=== PATIENT | female | born 1990 | race Caucasian/White ===

== ENCOUNTER 2019-04-06 09:42 | Outpatient (CLI) | payer OTHER, SELFPAY | END 2019-04-06 09:43 | disposition home or self-care (01) | LOC: ANHLAB 09:43 | PROVIDERS: Visit Provider Obstetrics & Gynecology | DX: N92.5 Other specified irregular menstruation (principal) | CPT/HCPCS: 36415; 84702 ==

== ENCOUNTER 2019-04-10 06:44 | Outpatient (CLI) | payer OTHER, SELFPAY ==
[2019-04-10 08:27] LABS: Hematocrit 39.6 % (37.0-47.0); Hemoglobin 13.2 g/dL (12.0-15.0); Mean Corpuscular HGB Conc 33.3 g/dl (32-36); Mean Corpuscular Hemoglobin 27.4 pg (26-34); Mean Corpuscular Volume 82.2 fl (80-100); Mean Platelet Volume 10.4 fl (7.4-10.4); Platelet Count Result 284 k/mm3 (150-375); Red Blood Count 4.82 M/mm3 (4.2-5.4); White Blood Count 7.9 K/mm3 (4.5-10.0)
[2019-04-10 08:46] LABS: Glucose 1 Hour PP 50gm Dose 75 mg/dL
[2019-04-10 09:14] LABS: Rubella IgG Antibody 26.3 IU/ML
[2019-04-10 09:15] LABS: Hepatitis B Surface Antigen Negative (Negative)
[2019-04-10 09:24] LABS: HIV 1/2 Ab P24 Ag Result Negative (Negative)
[2019-04-13 07:35] LABS: Rapid Plasma Reagin Non-Reactive (NonReactive)
[2019-04-15 14:54] LABS: CMV IgG Antibody >10.00 U/mL (<0.60)
== END 2019-04-10 06:45 | disposition home or self-care (01) ==
PROVIDERS: Visit Provider Obstetrics & Gynecology
DX: N92.5 Other specified irregular menstruation (principal); E66.9 Obesity, unspecified
CPT/HCPCS: 36415; 82947; 84702; 85027; 86592; 86644; 86703; 86747; 86762; 86787; 86850; 86900; 86901; 87086; 87340; G0432

== ENCOUNTER 2019-04-16 10:43 | Outpatient (CLI) | payer OTHER, SELFPAY ==
--- NOTE | ~2019-04-16 | US_ITS ---
EXAMINATION: US OB <= 14 weeks fetus DATE: 04/16/2019 11:12 INDICATION: Routine care. Recent miscarriage. Uncertain dates. TECHNIQUE: Real-time transabdominal pelvic ultrasound was performed. COMPARISON: Ultrasound 02/03/2019 FINDINGS: The uterus measures 12.5 x 7.8 x 6.4 cm. There is an intrauterine gestational sac. The crown r ump length measures 2.3 cm, which correlates with an estimated gestational age of 9 weeks and 0 day(s ) (+/-) 6 day(s). heart motion is identified measuring 167 beats per minute (bpm) by M-mode Dop pler. The right ovary measures 2.5 x 3.6 x 1.4 cm. The left ovary measures 2.4 x 1.8 x 1.8 cm. There is no free fluid in the pelvis. IMPRESSION: 1. Single living intrauterine gestation with estimated date of delivery of 11/19/2019. Reviewed, dictated and finalized at location A. IT BALANCE SPECIALIST IMPRESSION: 1. Single living intrauterine gestation with estimated date of delivery of 11/02.
== END 2019-04-16 10:44 | disposition home or self-care (01) ==
LOC: ANHIMG 10:49
PROVIDERS: Visit Provider Obstetrics & Gynecology
DX: Z34.91 Encounter for supervision of normal pregnancy, unspecified, first trimester (principal)
CPT/HCPCS: 76801

== ENCOUNTER 2019-07-08 10:24 | Outpatient (CLI) | payer OTHER, SELFPAY ==
--- NOTE | ~2019-07-08 | US_ITS ---
EXAMINATION: US OB /maternal detail EXAM DATE: 07/08/2019 11:30 INDICATION: For anatomy. Second trimester. TECHNIQUE: Pelvic obstetrical transabdominal sonogram was performed by a technologist. There are mu ltiple grayscale and Doppler images available for interpretation. Comparison is made to prior examina tion from 04/16/2019. FINDINGS: There is a single fetus identified in transverse presentation with a heart rate of 150 beat s per minute. The placenta is located in the posterior fundal position. There is no sonographic evid ence of retroplacental hemorrhage identified. Placental margin to internal cervical os distance is 7 cm. BIOMETRIC DATA: Biparietal diameter (BPD): 5.0cm ----------------> 21 weeks 0 days. Head circumference (HC): 19.4 cm ----------------> 21 weeks 5 days. Abdominal circumference (AC): 16.4 cm ----------> 21 weeks 3 days. Femur length (FL): 3.5 cm --------------------------> 21 weeks 0 days. These measurements are concordant. HC/AC ratio is 1.18 (The 5th -- 95th percentile range is 1.08-1.24. Estimated weight is 410 g +/- 62 g. This is the 67th percentile when the currently reported cl inical gestation age 20 weeks 6 days, clinical estimated date of delivery (HODA-OPE) 11/19/2019 is used . estimated gestational age based on measurements from this exam is 21 weeks 2 days, with an es timated date of delivery (HODA-AUA) 11/16/2019. ANATOMIC SURVEY: The following anatomy is identified and is sonographically normal in appearance: Cerebral ventricles Cerebellum Cisterna magna Nuchal fold CTL-spine Four-chamber heart Diaphragm Stomach Kidneys Bladder Three-vessel cord Cord insertion IMPRESSION: 1. Single fetus in vertex presentation with heart rate 150 beats per minute. 2. Estimated weight of 410 grams, 67th percentile using the currently reported clinical gestat ion age of 20 weeks 6 days, HODA(OPE) 11/19/2019. 3. Normal anatomic survey Reviewed, dictated and finalized at location A. IMPRESSION: 1. Single fetus in vertex presentation with heart rate 150 beats per minute. 2. Estimated weight of 410 grams, 67th percentile using the currently re ported clinical gestation age of 20 weeks 6 days, HODA(OPE) 11/19/2019. 3. Normal anatomic survey
== END 2019-07-08 10:25 | disposition home or self-care (01) ==
PROVIDERS: Visit Provider Obstetrics & Gynecology
DX: Z34.93 Encounter for supervision of normal pregnancy, unspecified, third trimester (principal); Z3A.20 20 weeks gestation of pregnancy
CPT/HCPCS: 76805

== ENCOUNTER 2019-08-29 07:18 | Outpatient (CLI) | payer OTHER, SELFPAY ==
[2019-08-29 08:33] LABS: Hemoglobin 12.1 g/dL (12.0-15.0)
[2019-08-29 08:45] LABS: Glucose 1 Hour PP 50gm Dose 162 mg/dL
[2019-08-29 09:26] LABS: HIV 1/2 Ab P24 Ag Result Negative (Negative)
== END 2019-08-29 07:19 | disposition home or self-care (01) ==
PROVIDERS: Visit Provider Obstetrics & Gynecology
DX: Z34.91 Encounter for supervision of normal pregnancy, unspecified, first trimester (principal)
CPT/HCPCS: 36415; 82947; 85014; 85018; 86703; G0432

== ENCOUNTER 2019-09-15 07:51 | Outpatient (CLI) | payer OTHER, SELFPAY ==
[2019-09-15 08:25] LABS: Glucose Fasting Gestational 91 mg/dL (>/=95)
[2019-09-15 09:42] LABS: Glucose 1 Hour Gest 171 mg/dL (>/=180)
[2019-09-15 11:27] LABS: Glucose 2 Hour Gest 155 mg/dL (>/= 155)
[2019-09-15 11:56] LABS: Glucose 3 Hour Gest 111 mg/dL (>/=140)
== END 2019-09-15 07:52 | disposition home or self-care (01) ==
LOC: ANHLAB 07:54
PROVIDERS: Visit Provider Obstetrics & Gynecology
DX: R73.09 Other abnormal glucose (principal)
CPT/HCPCS: 36415; 82951; 82952

== ENCOUNTER 2019-11-11 15:50 | Outpatient (CLI) | payer OTHER, SELFPAY ==
[2019-11-11 16:20] LABS: Hematocrit 36.2 % (37.0-47.0); Hemoglobin 12.3 g/dL (12.0-15.0); Mean Corpuscular Hemoglobin 27.9 pg (26-34); Mean Corpuscular Volume 82.1 fl (80-100); Mean Platelet Volume 11.9 fl (7.4-10.4); Platelet Count Result 193 k/mm3 (150-375); Red Blood Count 4.41 M/mm3 (4.2-5.4); Red Cell Distribution Width 13.5 % (11.5-14.5); White Blood Count 11.8 K/mm3 (4.5-10.0)
[2019-11-12 09:51] LABS: Rapid Plasma Reagin Non-Reactive (NonReactive)
== END 2019-11-11 15:51 | disposition home or self-care (01) ==
PROVIDERS: Visit Provider Obstetrics & Gynecology
DX: Z34.93 Encounter for supervision of normal pregnancy, unspecified, third trimester (principal); Z3A.00 Weeks of gestation of pregnancy not specified
CPT/HCPCS: 36415; 85027; 86592; 86850; 86900; 86901

== ENCOUNTER 2019-11-12 05:27 | Inpatient (IN) | payer OTHER, SELFPAY ==
[2019-11-12] VITALS (58 sets, daily range): BP systolic 94–167; BP diastolic 51–143; PULSE 57–125; RESP 12–18; TEMP 36.3–37.1; O2SAT 80–100; BMI 38.1
[2019-11-12] MEDS: LACTATED RINGERS 1,000 ML 125 ML IV CONT ×2 (06:00→06:59)
--- NOTE | 2019-11-12 06:05 | LDADM ---
This patient, Heavenly Moreira, was admitted to Labor/Delivery/Recovery 120 on 11/12/19 at 05:27. Plans for , pain management and were discussed with patient. Patient/family oriented to hospital policies and general routines including ID bracelet, bed and alarms, visiting hours, pain management, procedures, bathroom and other care routines, personal items, smoking policy, room service/diet and guest tray routines, infant security routines, and visiting hours. Patient/Family are encouraged to report perceived risks to care and to ask questions if they do not understand what they are told or what they should do. See OBIX for further documentation.
--- NOTE | 2019-11-12 07:07 | P.PNAN_ITS ---
Anes - Initial Pre Proc Eval Procedure: Operation Date: 11/12/19 07:30 Proposed Procedures p Repeat Section with Bilateral Tubal Ligation - Sara Beasley MD Date/Time: 11/12/19 07:07 Surgeon: Sara Beasley MD Pre Op Diagnosis: Patient Data Age: 29 Gender: F Height: 5 ft 3 in Weight: 97.6 kg Last Vital Signs Pulse 84 11/12/19 06:02 BP 120/85 11/12/19 06:02 Allergies Allergy/AdvReac Type Severity Reaction Status Date / Time No Known Allergies Allergy Unknown Verified 01/28/19 17:07 Home Medications Medication Instructions Recorded Confirmed Type PNV cmb#95-ferrous fumarate-FA 1 tablet PO DAILY 11/07/19 11/07/19 History [] albuterol sulfate 2 puff INHALATION QID PRN 11/07/19 11/07/19 History Patient hx anesthesia problems: none Family hx anesthesia problems: none PMFSH Past Medical History Medical History Abnormal Pap smear of cervix x3 with biopsy Asthma Surgical History Surgical History H/O section [place] teeth extracted Family History Family History Father Acute myocardial infarction Grandparent Acute myocardial infarction Family history of malignant neoplasm of breast Mother Family history of pancreatic disease Social History Social History Smoking status: Never smoker Alcohol intake: never Substance use: never Gender identity (if verbalized by the patient): Female Spiritual care concerns: No Anes - Eval Final PreProcedure Day of Procedure 11/12/19 07:07 Patient weight: obese Heart: regular rate and rhythm Lungs: clear to auscultation Airway: Mallampati scale class II Neurological: alert and oriented Last oral intake: >/= 8 hours ASA classification: II Emergent: no Anesthetic plan: proceed Anesthesia type and monitoring: regional spinal and standard monitoring Informed Consent: The patient's anesthetic plan and its attendant risks and benefits were discussed with the patient/family/POA. Questions were solicited and answers provided to the satisfaction of the patient/family/POA.
--- NOTE | 2019-11-12 07:08 | P.HP_ITS ---
H&P: HPI History of Present Illness Date/Time: 11/12/19 07:00 Chief complaint: Narrative: Heavenly Moreira is a 29 yo @ 39.0wks (HODA 11/19/19) who presents for scheduled repeat c/s + BTL. She denies any issues today. No ctxs, LOF, or VB. + movement. She has been NPO. [facility] Her is complicated by: - Previous c/s x1 - Undesired future fertility - Abnormal glucola; normal 3hr OGTT - GBS positive - Asthma; albuterol PRN Review of Systems Constitutional: Constitutional: Denies body ache(s) and Denies chills Eyes: Eyes: Denies blurry vision Cardiovascular: Cardiovascular: Denies chest pain and Denies palpitations Respiratory: Respiratory: Denies cough and Denies dyspnea Gastrointestinal: Gastrointestinal: Denies abdominal pain, Denies nausea and Denies vomiting Genitourinary: Comments: no leakage of fluid or vaginal bleeding Integumentary/Breasts: Skin/Breast: Denies rash Neurologic: Denies headache(s) Psychiatric: Psychiatric: Denies depression [facility] Past Medical History Medical History Abnormal Pap smear of cervix x3 with biopsy Asthma Surgical History Surgical History H/O section [place] teeth extracted Family History Family History Father Acute myocardial infarction Grandparent Acute myocardial infarction Family history of malignant neoplasm of breast Mother Family history of pancreatic disease Social History Social History Smoking status: Never smoker Alcohol intake: never Substance use: never Gender identity (if verbalized by the patient): Female Spiritual care concerns: No Meds Home Medications and Allergies Home Medications Medication Instructions Recorded Confirmed Type PNV cmb#95-ferrous fumarate-FA 1 tablet PO DAILY 11/07/19 11/07/19 History [] albuterol sulfate 2 puff INHALATION QID PRN 11/07/19 11/07/19 History Allergies Allergy/AdvReac Type Severity Reaction Status Date / Time No Known Allergies Allergy Unknown Verified 01/28/19 17:07 Exam Const: General: comfortable and no acute distress Resp: Effort & Inspection: normal respiratory effort Cardio: Rate: regular rate GI: GI Palp: No Tenderness to palpation present (GI) : Other: FHT's: 150's/ mod abad/ + accels/ no decels - cat 1 TOCO: no ctx's Skin: General skin exam: normal color Neuro: Speech: normal speech Extrem: General: normal to inspection Psych: Mental Status: mental status grossly normal Affect: normal affect Assessment and Plan Assessment and plan (1) H/O section: Code(s): Z98.891 - History of uterine scar from previous surgery Status: Acute (2) Request for sterilization: Code(s): Z30.2 - Encounter for sterilization Status: Acute Additional Plan - Plan to proceed with repeat LTCS + salpingectomy - All risks/benefits/alternatives discussed in detail; all questions answered, and the appropriate consents were signed
--- NOTE | 2019-11-12 07:17 | WPDHPUPDATE1 ---
History and Physical Update Update Date/Time: 11/12/19 07:09 History and Physical has been reviewed, including an updated exam of the patient. There are NO changes in the patient's condition. Risks, benefits, and alternatives have been discussed and questions answered. Patient agrees to proceed with procedure.
[2019-11-12] MEDS: ceFAZolin 2 GM/D5W 50 ML 2 GM/50 ML BAG IVPB (07:32)
[2019-11-12] MEDS: OXYTOCIN 30 UNITS/NS 500 ML 30 UNITS/500 ML BAG 125 UNITS (09:21)
[2019-11-12] MEDS: LORATADINE 10 MG TABLET PO (09:25)
--- NOTE | 2019-11-12 11:00 | OBPPTRN ---
Patient transferred to post room # 284 via stretcher. Support person present. Oriented to unit, room, information board, rooming in, admission packet and security measures. Patient verbalizes understanding.
--- NOTE | 2019-11-12 12:20 | PM.OBPRVD ---
OB - Delivery Note Procedure Procedure: Procedures Operation Date: 11/12/19 07:30 Actual Procedures Side Surgeon p Section Not Applicable Sara Beasley MD Route of delivery: Specimen: No Estimated blood loss (mL): 410 Anesthesia type: Spinal Disposition: PACU Narrative: She was counseled on all risks and benefits in detail for repeat section. She had previously desires tubal ligation, but has decided against it. She was taken to the operating room where spinal epidural was placed. She was then prepped and draped in the normal sterile fashion. She received 2g Ancef and a time out was performed. A Pfannenstiel incision was made in the skin and carried down to the underlying fascia. The fascia was nicked on either side of the midline and the fascial incision was extended laterally and superiorly. The fascia was then elevated and the underlying rectus muscles were dissected off the fascia, superiorly and inferiorly. The rectus muscles were noted to have a small amount of scar tissue but were easily in the midline and the peritoneum was entered bluntly. Once adequate exposure was obtained, an Chiki self retractor was placed within the abdomen. A low transverse incision was made on the lower uterine segment and clear fluid was noted. The occicuput was brought to the hysterotomy and the head was easily delivered, nuchal cord was reduced. The shoulder and body then followed without complications. The fetus had spontaneous cry and the mouth and nose were bulb suctioned. The cord was clamped and cut and the fetus was handed off to the awaiting pediatric nurse. A segment of the cord was collected for cord gases. The remaining cord blood was collected for typing. With pitocin infusing, the placenta delivered with gentle traction on the cord without complications. The uterus was then cleared out of all clots and debris using a clean, moist lap. The hysterotomy was then repaired in a running, interlocking fashion using 0 Vicryl. A second layer imbricating suture was then made using 0 Vicryl. And additional figure of eight stitch was placed on the left side of the hysterotomy for hemostasis. The hysterotomy was found to be hemostatic and good uterine tone was noted. The bilateral adnexa were examined and found to be normal except for a 1cm paratubal cyst on the right side. The pelvis was cleared of all clots and fluid. The chiki retractor was removed from the abdomen. The peritoneum, muscle, and fascia were examined and made hemostatic with bovie cautery. The fascia was then repaired using 0 Vicryl suture in a running fashion. The subcutaneous tissue was then irrigated and made hemostatic with bovie cautery. The subcutaneous tissue was then reapproximated using 2-0 Vicryl. The skin was then closed using 3-0 Monocryl in a running subcuticular fashion. Sponge, lap, needle and instrument counts were correct at the end of the procedure x2. The patient tolerated the procedure well and was taken to recovery in a stable condition. [place] Baby Date of : 11/12/19 Time of : 08:04 Weeks of gestation at delivery: 39 Infant gender: Female Weight (pounds): 8 Weight (ounces): 0 presentation: vertex Placenta delivery description: Expressed cord vessel description: 3 Vessels, Nuchal Cord, Loose and Reduced score one minute: 9 score five minutes: 9
[2019-11-12] MEDS: DEXTROSE 5%/0.45% SOD CHL 1,000 ML 125 ML IV CONT ×2 (13:19→16:47)
--- NOTE | 2019-11-12 15:30 | PC.NURSE ---
Consult with pt., mother reports has latched several times since with out difficulties or discomfort. Reviewed infant feeding cues, frequencies, duration of feedings, feeding elimination flow sheet, and signs of adequate intake. Instructed mother to call out for RN assistance if she is unable to latch for feeding or she has discomfort with nursing. Instructed feeding should be initiated three hours from start of last feeding or if feeding cues are noted before. Mother voiced understanding of information shared.
[2019-11-12] MEDS: KETOROLAC 30 MG/ML VIAL (*BKC) IV PUSH ×2 (16:40→22:56)
[2019-11-12] MEDS: DOCUSATE SODIUM 100 MG CAPSULE PO (16:40)
[2019-11-13] MEDS: KETOROLAC 30 MG/ML VIAL (*BKC) IV PUSH (04:40)
[2019-11-13 05:04] LABS: Basophils Percent Auto 0.2 % (0.2-1.2); Eosinophils Absolute Auto 0.1 K/mm3 (0-0.3); Eosinophils Percent Auto 0.4 % (0-4.4); Hematocrit 30.4 % (37.0-47.0); Hemoglobin 10.1 g/dL (12.0-15.0); Immature Granulocyte Absolute 0.05 K/mm3 (0.00-0.031); Immature Granulocyte Percent A 0.4 % (0-0.5); Lymphocytes Absolute Auto 2.45 K/mm3 (0.9-3.2); Lymphocytes Percent Auto 20.2 % (18.3-44.2); Mean Corpuscular HGB Conc 33.2 g/dl (32-36); Mean Corpuscular Hemoglobin 27.7 pg (26-34); Mean Corpuscular Volume 83.3 fl (80-100); Monocytes Absolute Auto 0.9 K/mm3 (0.1-0.6); Monocytes Percent Auto 7.2 % (2.6-8.5); Neutrophils Absolute Auto 8.7 K/mm3 (1.3-6.7); Neutrophils Percent Auto 71.6 % (45.5-73.1); Platelet Count Result 162 k/mm3 (150-375); Red Blood Count 3.65 M/mm3 (4.2-5.4); Red Cell Distribution Width 13.6 % (11.5-14.5); White Blood Count 12.2 K/mm3 (4.5-10.0)
[2019-11-13 06:03] VITALS: BP 98/58; PULSE 86; RESP 12; TEMP 36.6; O2SAT 97
--- NOTE | 2019-11-13 07:53 | PM.OBPNVD ---
OB - PN: Subj Subjective Date/time seen: 11/13/19 07:53 Interval history: s/p rLTCS on 11/11 Patient comments: no complaints and pain well controlled baby status: nursing well [place] feeding status: exclusively breast feeding Narrative: Doing well, pain is well controlled. Ambulating. Denies lightheadedness, dizziness, nausea. Tolerating diet. OB - PN: Obj Data Labs CBC & Chem 7: 11/13/19 04:30 Labs: Laboratory Results - last 24 hr 11/13/19 04:30 WBC 12.2 H RBC 3.65 L Hgb 10.1 L Hct 30.4 L MCV 83.3 MCH 27.7 MCHC 33.2 RDW 13.6 Plt Count 162 MPV 12.0 H Immature Gran % (Auto) 0.4 Neut % (Auto) 71.6 Lymph % (Auto) 20.2 [place] % (Auto) 7.2 Eos % (Auto) 0.4 Baso % (Auto) 0.2 Lymph # (Auto) 2.45 [place] # (Auto) 0.9 H Eos # (Auto) 0.1 Baso # (Auto) 0.0 Abs Immat Gran (auto) 0.05 H Absolute Neuts (auto) 8.7 H Absolute Nucleated RBC 0.0 Nucleated RBC % 0.0 OB - PN A/P Assessment and Plan (1) Delivery by section using low vertical uterine incision: Code(s): O82 - Encounter for delivery without indication Status: Acute Assessment and Plan: Routine post op/post care Pain management Ambulate Time Spent With Patient Time: Total time spent is greater than 50% in coordination of care (as documented) at patient's floor/unit and/or counseling patient: Review of Systems Constitutional: Constitutional: Reports no additional constitutional complaints Cardiovascular: Cardiovascular: Reports no additional cardiovascular complaints Respiratory: Respiratory: Reports no additional respiratory complaints Gastrointestinal: Gastrointestinal: Reports no additional gastrointestinal complaints Genitourinary: Genitourinary: Reports no additional female genitourinary complaints Neurologic: Reports system reviewed and no additional complaints, except as documented Exam Const: General: comfortable, no acute distress, alert and awake Orientation/consciousness: patient oriented x3 Resp: Effort & Inspection: normal respiratory effort Auscultation: clear to auscultation bilaterally Cardio: Rate: regular rate GI: Other: soft, nontender, nondistended. Bandage in place Psych: Appearance: grossly normal Mental Status: mental status grossly normal Affect: normal affect Attitude: cooperative Judgement: Good judgement present (Psych)
--- NOTE | 2019-11-13 07:59 | PM.OBPNVD ---
OB - PN: Subj Subjective Date/time seen: 11/13/19 07:59 Interval history: s/p rLTCS on 11/11 OB - PN: Obj Data Labs CBC & Chem 7: 11/13/19 04:30 Labs: Laboratory Results - last 24 hr 11/13/19 04:30 WBC 12.2 H RBC 3.65 L Hgb 10.1 L Hct 30.4 L MCV 83.3 MCH 27.7 MCHC 33.2 RDW 13.6 Plt Count 162 MPV 12.0 H Immature Gran % (Auto) 0.4 Neut % (Auto) 71.6 Lymph % (Auto) 20.2 [place] % (Auto) 7.2 Eos % (Auto) 0.4 Baso % (Auto) 0.2 Lymph # (Auto) 2.45 [place] # (Auto) 0.9 H Eos # (Auto) 0.1 Baso # (Auto) 0.0 Abs Immat Gran (auto) 0.05 H Absolute Neuts (auto) 8.7 H Absolute Nucleated RBC 0.0 Nucleated RBC % 0.0 OB - PN A/P Assessment and Plan (1) Delivery by section using transverse incision of lower segment of uterus: Code(s): O82 - Encounter for delivery without indication Status: Acute Time Spent With Patient Time: Total time spent is greater than 50% in coordination of care (as documented) at patient's floor/unit and/or counseling patient:
--- NOTE | 2019-11-13 08:50 | PC.NURSE ---
Consulted with patient, mother reports infant has been feed freq and for long durations during the night. Mother is concerned, first infant had weight loss with early supplementation and low milk supply. Discussed HX and mother has marked breast asymmetry. Discussed how breast asymmetry may impact milk production, mother reports minimal breast changes during her . Reviewed feeding cues, frequencies, duration of feedings, feeding elimination flow sheet, and signs of adequate intake. Reviewed is WNL at this time and supplementation is her choice. Mother has infant to breast in cradle positioning with head turned in and shallow latch. Reviewed positioning/alignment in cross cradle, holding breast in U hold and guided asymmetrical latch on. Infant was able to latch correctly. nursed eagerly, with steady draws and occasional swallowing noted. Reviewed signs of a correct latch, effective nursing and suck swallow ratio. was able to maintain latch without discomfort to mother. Nipple care reviewed. Instructed mother to call out for RN assistance if she is unable to latch for feeding or she has discomfort with nursing. Instructed feeding should be initiated three hours from start of last feeding or if feeding cues are noted before. Mother voiced understanding of information shared.
[2019-11-13 09:50] VITALS: BP 111/74; PULSE 89; RESP 18; TEMP 36.5; O2SAT 97
[2019-11-13] MEDS: IBUPROFEN 600 MG TABLET PO ×2 (10:22→16:07)
[2019-11-13] MEDS: MULTIVIT/MIN/PREN/FOL AC/IRON TABLET 1 TAB PO (10:22)
[2019-11-13] MEDS: DOCUSATE SODIUM 100 MG CAPSULE PO ×2 (10:23→18:53)
[2019-11-13] MEDS: SIMETHICONE 80 MG TAB.CHEW PO ×2 (10:29→16:07)
--- NOTE | 2019-11-13 12:45 | WPDANLDPN2 ---
Anes-Prog Note L&D Date/Time: 11/13/19 12:45 Comfortable throughout: section Neuraxial method: spinal Epidural/Spinal procedure site: clean & non-tender Neuro status: Neuro function grossly intact. Cardiovascular status: normal Respiratory status: normal Airway patency: baseline Mental status: baseline Post-Op hydration status: normal Vital Signs: Last Vital Signs Temp 36.5 C 11/13/19 09:50 Pulse 89 11/13/19 09:50 Resp 18 11/13/19 09:50 BP 111/74 11/13/19 09:50 Pulse Ox 97 11/13/19 09:50 I/O: Intake & Output 11/12/19 11/13/19 11/13/19 23:59 07:59 15:59 Intake Total 4000 250 Output Total 3325 1850 Balance 675 -1600 Post-procedural complaints: none Patient feedback: Patient satisfied with anesthetic care.
--- NOTE | 2019-11-13 12:45 | WPDANLDNPN2 ---
Anes-Prog Note L&D-Neuraxial Date/Time: 11/13/19 12:45 Neuraxial medications: intrathecal PF morphine Opiod-related complaints: none Patient feedback: Patient satisfied with post-operative pain management.
[2019-11-13 20:00] VITALS: BP 133/90; PULSE 95; RESP 18; TEMP 36.9; O2SAT 100
[2019-11-13] MEDS: TETANUS,DIPHTHERIA,AC PERTUSSIS ADULT (0.5 ML) BOOSTRIX IM (21:53)
[2019-11-14] MEDS: IBUPROFEN 600 MG TABLET PO ×2 (03:10→09:25)
--- NOTE | 2019-11-14 08:03 | PM.OBDSVD ---
DS: Admitting Diagnosis Admitting Diagnosis Admitting Diagnosis: OB - DS: Summary OB Procedures : None OB Procedures Intrapartum: OB Procedures: : None Peripartum Data Procedures: Procedures Operation Date: 11/12/19 07:30 Actual Procedures Side Surgeon p Section Not Applicable Sara Beasley MD Time Spent with Patient Time attestation: Total time spent providing and/or coordinating discharge services: Discharge Plan Discharge Discharging Clinician: Lex Terrazas Patient Disposition: Home, Self-Care Activity: as tolerated Diet: as tolerated Wound Care Instructions: incision open to air Patient Instructions: Antibiotic Form Stand Alone Forms: General Discharge Information Follow-up/Referrals: Sara Beasley MD [Physician] - 3 Weeks Discharge Medications: New hydrocodone-acetaminophen 5-325 mg Tablet 1 tab PO Q6H PRN (Reason: Moderate Pain (4-6)) Qty: 20 RF: 0 ibuprofen 600 mg Tablet 600 mg PO Q6H PRN (Reason: Cramping) Qty: 30 RF: 0 Continued albuterol sulfate 90 mcg/actuation Hfa Aerosol Inhaler 2 puff INHALATION QID PRN (Reason: Wheezing) RF: 0 PNV cmb#95-ferrous fumarate-FA [] 28 mg iron- 800 mcg Tablet 1 tablet PO DAILY RF: 0 Date of admission: 11/12/19 05:27 Primary Care Provider: PHYSICIAN,BASEBALL UMPIRE [employer] Admitting Provider: Sara Beasley Attending physician on admission: Sara Beasley
[2019-11-14 08:15] VITALS: BP 124/74; PULSE 91; RESP 16; TEMP 36.4; O2SAT 99
[2019-11-14 08:30] VITALS: PULSE 91; RESP 16; O2SAT 99
[2019-11-14] MEDS: DOCUSATE SODIUM 100 MG CAPSULE PO (09:25)
[2019-11-14] MEDS: MULTIVIT/MIN/PREN/FOL AC/IRON TABLET 1 TAB PO (09:25)
--- NOTE | 2019-11-14 12:39 | PC.NURSE ---
Patient was given the opportunity to view the discharge video Mother & Baby Care, The First Two Weeks and to ask questions. Patient declined viewing the video and has been given the mother/baby guide for home reference.
[2019-11-16 11:24] VITALS: BP 131/87; PULSE 86; RESP 20; TEMP 36.8; O2SAT 99
== END 2019-11-14 13:00 | disposition home or self-care (01) | DRG 788 ==
LOC: ANHOB2 11-14 12:07 → ANHLDR 11-16 10:28 → ANHOB2 11-16 10:28
PROVIDERS: Admitting Provider Obstetrics & Gynecology; Visit Provider Obstetrics & Gynecology
PROC: 10D00Z1 Extraction of Products of Conception, Low, Open Approach (ICD-10-PCS; CPT 59514; principal; 2019-11-12 07:30)
DX: O34.211 Maternal care for low transverse scar from previous cesarean delivery (principal); O99.824 Streptococcus B carrier state complicating childbirth; O69.81X0 Labor and delivery complicated by cord around neck, without compression, not applicable or unspecified; O99.214 Obesity complicating childbirth; E66.9 Obesity, unspecified; Z3A.39 39 weeks gestation of pregnancy; Z37.0 Single live birth; N83.8 Other noninflammatory disorders of ovary, fallopian tube and broad ligament
CPT/HCPCS: 36415; 85025; 90715; A9270; J0131; J0690; J1200; J1885; J2274; J2370; J2590; J7120

== ENCOUNTER 2020-12-09 10:01 | Outpatient (CLI) | payer OTHER, SELFPAY ==
[2020-12-09 11:39] LABS: Hematocrit 39.4 % (37.0-47.0); Hemoglobin 13.3 g/dL (12.0-15.0); Mean Corpuscular HGB Conc 33.8 g/dl (32-36); Mean Corpuscular Hemoglobin 27.4 pg (26-34); Mean Corpuscular Volume 81.2 fl (80-100); Mean Platelet Volume 10.5 fl (7.4-10.4); Platelet Count Result 253 k/mm3 (150-375); Red Blood Count 4.85 M/mm3 (4.2-5.4); Red Cell Distribution Width 13.9 % (11.5-14.5); White Blood Count 8.4 K/mm3 (4.5-10.0)
[2020-12-09 12:08] LABS: Glucose 1 Hour PP 50gm Dose 118 mg/dL
[2020-12-09 12:44] LABS: HIV 1/2 Ab P24 Ag Result Negative (Negative); Hepatitis B Surface Antigen Negative (Negative)
[2020-12-12 06:59] LABS: Rapid Plasma Reagin Non-Reactive (NonReactive)
[2020-12-14 18:00] LABS: CMV IgG Antibody >10.00 U/mL (<0.60)
== END 2020-12-09 10:02 | disposition home or self-care (01) ==
PROVIDERS: Visit Provider Obstetrics & Gynecology
DX: N92.5 Other specified irregular menstruation (principal)
CPT/HCPCS: 36415; 82947; 84702; 85027; 86592; 86644; 86703; 86747; 86762; 86787; 86850; 86900; 86901; 87086; 87088; 87340; G0432

== ENCOUNTER 2020-12-22 15:31 | Outpatient (CLI) | payer OTHER, SELFPAY ==
--- NOTE | ~2020-12-22 | US_ITS ---
EXAMINATION: US OB <= 14 weeks fetus DATE: 12/22/2020 16:17 INDICATION: Dating of unknown trimester TECHNIQUE: Real-time pelvic transabdominal and transvaginal ultrasound was performed. COMPARISON: None. FINDINGS: The uterus measures 16.1 x 7.5 x 10.6 cm. The placenta is anterior/right. heart oralia on is identified measuring 155 beats per minute (bpm) by M-mode Doppler. The crown rump length measures 8.1 cm. The ovaries are not visualized however no adnexal abnormality is seen. There is no f ree fluid in the pelvis. The following biometric data were obtained: Biparietal diameter (BPD): 2.4 cm; head circumference (HC): 9.1 cm; abdominal circumference (AC): 8.0 cm; femur length (FL): 1.4 cm. These measurements are concordant. Estimated weight is 92 g +/- 13 g, which correlates with the 70th percentile when 06/24/2021 is used as estimated date of delivery. As single measurements, these parameters are each equal to the following estimated gestational ages w ith ranges of +/- 2 standard deviations: BPD: 14 weeks 1 days +/- 1 weeks 1 days. HC: 14 weeks 1 days +/- 1 weeks 1 days. AC: 14 weeks 3 days +/- 1 weeks 5 days. FL: 14 weeks 0 days +/- 1 weeks 3 days. estimated gestational age based solely on measurements from this exam is 14 weeks 1 days +/- 1 weeks 0 days. IMPRESSION: 1. Live intrauterine with an estimated gestational age of 14 weeks and 1 day(s) (+/-) 7 day (s) and an estimated delivery date of 06/21/2021. Reviewed, dictated and finalized at location A. IMPRESSION: 1. Live intrauterine with an estimated gestational age of 14 weeks an d 1 day(s) (+/-) 7 day(s) and an estimated delivery date of 06/21/2021.
== END 2020-12-22 15:32 | disposition home or self-care (01) ==
LOC: ANHIMG 15:50
PROVIDERS: PCP Obstetrics & Gynecology; Visit Provider Obstetrics & Gynecology
DX: Z34.92 Encounter for supervision of normal pregnancy, unspecified, second trimester (principal); Z3A.14 14 weeks gestation of pregnancy
CPT/HCPCS: 76801

== ENCOUNTER 2021-02-01 15:11 | Outpatient (CLI) | payer OTHER, SELFPAY ==
--- NOTE | ~2021-02-01 | US_ITS ---
EXAMINATION: US OB /maternal detail DATE: 02/01/2021 16:15 INDICATION: survey TECHNIQUE: Multiple obstetric sonographic images performed. FINDINGS: Ultrasound dated 12/22/2020 There is a single living fetus in transverse presentation. The placenta is anterior without placenta previa. Placental margin measures 4.3 cm to the cervix. Amniotic fluid volume is normal. MIAN measure s 12.2 cm. cardiac activity and movement is noted with a heart rate of 139 beats per minute. The following anatomy was identified as normal: 4 chamber heart 3 vessel cord cord insertion kidneys urinary bladder stomach spine diaphragm ventricles cisterna magna cerebellum The following biometric data were obtained: BPD: 46mm corresponds to gestational age 19 weeks 6 days. Head circumference: 178 mm corresponds to gestational age 20 weeks 2 days. Abdominal circumference: 152 mm corresponds to gestational age 20 weeks 3 days. Femur length: 32 mm corresponds to gestational age 20 weeks 0 days. Head circumference to abdominal circumference ratio: 1.16 (normal range for expected gestational age is 1.07-1.25). Estimated weight: 342 grams +/- 51 grams using Hadlock method. IMPRESSION: 1: Single living intrauterine with an estimated gestational age of 20weeks 0days by initial ultrasound measurements, with an EDC of 06/21/2021 in transverse presentation. 2. Normal survey. Reviewed, dictated and finalized at location B. SION OPERATIONS MANAGER IMPRESSION: 1: Single living intrauterine with an estimated gestational age of 20 weeks 0days by initial ultrasound measurements, with an EDC of 06/21/2021 in tra nsverse presentation. 2. Normal survey.
== END 2021-02-01 15:12 | disposition home or self-care (01) ==
LOC: ANHIMG 15:16
PROVIDERS: Visit Provider Obstetrics & Gynecology
DX: Z34.92 Encounter for supervision of normal pregnancy, unspecified, second trimester (principal); Z3A.20 20 weeks gestation of pregnancy
CPT/HCPCS: 76805

== ENCOUNTER 2021-03-29 08:13 | Outpatient (CLI) | payer OTHER, SELFPAY ==
[2021-03-29 10:27] LABS: Basophils Percent Auto 0.3 % (0.2-1.2); Eosinophils Percent Auto 0.3 % (0-4.4); Hematocrit 39.4 % (37.0-47.0); Hemoglobin 13.1 g/dL (12.0-15.0); Immature Granulocyte Absolute 0.04 K/mm3 (0.00-0.031); Immature Granulocyte Percent A 0.4 % (0-0.5); Lymphocytes Absolute Auto 2.28 K/mm3 (0.9-3.2); Lymphocytes Percent Auto 25.4 % (18.3-44.2); Mean Corpuscular HGB Conc 33.2 g/dl (32-36); Mean Corpuscular Hemoglobin 28.2 pg (26-34); Mean Corpuscular Volume 84.7 fl (80-100); Mean Platelet Volume 11.4 fl (7.4-10.4); Monocytes Absolute Auto 0.5 K/mm3 (0.1-0.6); Monocytes Percent Auto 5.5 % (2.6-8.5); Neutrophils Absolute Auto 6.1 K/mm3 (1.3-6.7); Neutrophils Percent Auto 68.1 % (45.5-73.1); Platelet Count Result 204 k/mm3 (150-375); Red Blood Count 4.65 M/mm3 (4.2-5.4)
[2021-03-29 10:38] LABS: Glucose 1 Hour PP 50gm Dose 112 mg/dL
[2021-03-29 11:15] LABS: HIV 1/2 Ab P24 Ag Result Negative (Negative)
== END 2021-03-29 08:14 | disposition home or self-care (01) ==
PROVIDERS: Visit Provider Obstetrics & Gynecology
DX: Z34.92 Encounter for supervision of normal pregnancy, unspecified, second trimester (principal); Z3A.25 25 weeks gestation of pregnancy
CPT/HCPCS: 36415; 82947; 85025; 86703; G0432

== ENCOUNTER 2021-05-24 17:11 | Observation (INO) | payer OTHER, SELFPAY ==
--- NOTE | 2021-05-24 17:35 | OBADM ---
This patient, Heavenly Moreira, admitted to the OB room Labor/Delivery/Recovery 119 for observation. Patient/family oriented to hospital policies and general routines including ID bracelet, bed and alarms, visiting hours, pain management, procedures, bathroom and other care routines, personal items, smoking policy, room service/diet, and visiting hours. Patient/Family are encouraged to report perceived risks to care and to ask questions if they do not understand what they are told or what they should do.
--- NOTE | 2021-05-25 12:20 | PM.OBTRLD ---
OB - Triage/Final Diagnosis Visit Information Comments/Additional reasons for admission: I have assessed the risk for this patient, Heavenly Moreira, and determined that she would benefit from observation care. Final Diagnosis (1) Abdominal pain affecting : Code(s): O26.899 - Other specified related conditions, unspecified trimester; R10.9 - Unspecified abdominal pain Status: Acute
== END 2021-05-24 17:40 | disposition home or self-care (01) ==
PROVIDERS: Admitting Provider Obstetrics & Gynecology; Visit Provider Obstetrics & Gynecology
DX: O26.893 Other specified pregnancy related conditions, third trimester (principal); R10.9 Unspecified abdominal pain; Z3A.35 35 weeks gestation of pregnancy
CPT/HCPCS: 99199

== ENCOUNTER 2021-06-17 07:00 | Outpatient (CLI) | payer OTHER, SELFPAY ==
[2021-06-17 07:40] LABS: Hematocrit 40.5 % (37.0-47.0); Hemoglobin 13.4 g/dL (12.0-15.0); Mean Corpuscular HGB Conc 33.1 g/dl (32-36); Mean Corpuscular Hemoglobin 27.2 pg (26-34); Mean Corpuscular Volume 82.2 fl (80-100); Mean Platelet Volume 12.3 fl (7.4-10.4); Platelet Count Result 171 k/mm3 (150-375); Red Blood Count 4.93 M/mm3 (4.2-5.4); Red Cell Distribution Width 14.2 % (11.5-14.5); White Blood Count 9.2 K/mm3 (4.5-10.0)
[2021-06-19 12:15] LABS: Rapid Plasma Reagin Non-Reactive (NonReactive)
== END 2021-06-17 07:01 | disposition home or self-care (01) ==
LOC: ANHLAB 07:02
PROVIDERS: Visit Provider Obstetrics & Gynecology
DX: Z34.93 Encounter for supervision of normal pregnancy, unspecified, third trimester (principal); Z3A.00 Weeks of gestation of pregnancy not specified
CPT/HCPCS: 36415; 85027; 86592; 86850; 86900; 86901

== ENCOUNTER 2021-06-19 05:35 | Inpatient (IN) | payer OTHER, SELFPAY ==
--- NOTE | 2021-05-24 13:01 | PC.NURSE ---
Verified with OR schedule and patient --C/S on 06/19/21 at 0730 with tubal ligation Patient given requisition for lab draw on 06/17/21
[2021-06-19] VITALS (53 sets, daily range): BP systolic 104–148; BP diastolic 56–99; PULSE 54–93; RESP 13–20; TEMP 36.2–37.1; O2SAT 96–100; BMI 39.3
--- OUTSIDE RECORDS SUMMARY | 2021-06-19 05:40 | XMS_ITS ---
:1990 Author Care Team Providers Name Role Phone TAMELA PIEDRA MD Primary Care Provider [phone] Allergies Code Code System Name Reaction Severity Status Onset NKDA ? Medications Name Status Start Date Stop Date ? ? albuterol sulfate HFA 90 mcg/actuation aerosol inhaler Active ? Not available INHALE 2 PUFFS BY MOUTH EVERY 4 HOURS hydrocodone 5 mg-acetaminophen 325 mg Completed ? 12/09/2019 tablet hydrocodone 5 mg-acetaminophen 500 mg tablet Unknown ? Not available TK ONE TO TWO TS PO Q 4 TO 6 H PRN P ibuprofen 600 mg tablet Completed ? 12/09/19 20 methylprednisolone 4 mg tablets in a dose pack Unknown ? Not available TK UTD Nexplanon Completed ? 05/14/2017 Nexplanon 68 mg subdermal implant Completed ? 05/14/2017 19 (with docusate) 29 mg iron-1 mg-25 mg tablet Unknown ? Not available Take 1 tablet by oral route. Slynd 4 mg (28) tablet Active ? Not avail able TAKE 1 TABLET BY MOUTH ONCE DAILY Tri-Sprintec (28) 0.18 mg(7)/0.215 mg(7)/0.25 mg(7)-35 mcg table t Unknown ? Not available TAKE ONE TABLET BY MOUTH ONCE DAILY Notes: vit; stool softn er Problems Name Status Onset Date Source ? Unknown 04/16/2019 ? Chronic Cervicitis Unknown ? Encounter Suppression of Menstruation Unknown ? Enco unter Cervicovaginal Cytology: Low Grade Unknown ? Encounter Squamous Intraepithelial Lesion [facility]
[2021-06-19] MEDS: LACTATED RINGERS 1,000 ML 125 ML IV CONT (06:12)
--- NOTE | 2021-06-19 06:15 | LDADM ---
This patient, Heavenly Moreira, was admitted to Labor/Delivery/Recovery 120 on 06/19/21 at 05:35. Plans for , pain management and were discussed with patient. Patient/family oriented to hospital policies and general routines including ID bracelet, bed and alarms, visiting hours, pain management, procedures, bathroom and other care routines, personal items, smoking policy, room service/diet and guest tray routines, infant security routines, and visiting hours. Patient/Family are encouraged to report perceived risks to care and to ask questions if they do not understand what they are told or what they should do. See OBIX for further documentation.
--- NOTE | 2021-06-19 06:26 | WPDANESEPPF ---
Anes - Initial Pre Proc Eval Procedure: Operation Date: 06/19/21 07:30 Proposed Procedures p Repeat Section wtih Bilateral Tubal Ligation - Lex Terrazas MD Date/Time: 06/19/21 06:26 Surgeon: Lex Terrazas MD Pre Op Diagnosis: Scheduled Patient Data Age: 30 Gender: F Height: 1.63 m Weight: 104 kg Last Vital Signs Pulse 75 06/19/21 06:10 BP 130/96 H 06/19/21 06:10 Allergies Allergy/AdvReac Type Severity Reaction Status Date / Time No Known Allergies Allergy Unknown Verified 06/19/21 06:02 Home Medications Medication Instructions Recorded Confirmed Type PNV cmb#95-ferrous fumarate-FA 1 tablet PO DAILY 11/07/19 06/19/21 History [] albuterol sulfate 2 puff INHALATION QID PRN 11/07/19 06/19/21 History magnesium 250 mg tablet 250 mg PO BID tablet 04/11/21 06/19/21 History Patient hx anesthesia problems: none Family hx anesthesia problems: none Results Review: All pre-operative results and documents have been reviewed as part of the pre-operative evaluation. [facility] Past Medical History Medical History Abnormal Pap smear of cervix x3 with biopsy Asthma Hypertension Surgical History Surgical History Delivery by section (11/12/19) rpt c/s H/O section (04/06/15) primary c/s nonreassuring FHT H/O colposcopy with cervical biopsy (10/01/11) colpo cervical bx/ECC- chronic cervicitis w/ focal squamous [place] teeth extracted Family History Family History Father Acute myocardial infarction Grandparent Family history of malignant neoplasm of breast Acute myocardial infarction Lupus Mother Family history of pancreatic disease Lupus Social History Social History Smoking status: Never smoker Alcohol intake: never Substance use: never Substance use type: does not use Additional living arrangements comments: spouse Additional occupation/education comments: Nurse Gender identity (if verbalized by the patient): Female Sexual Orientation (if Verbalized by the Patient): Straight or Heterosexual Spiritual care concerns: No Anes - Eval Final PreProcedure Day of Procedure 06/19/21 06:26 Patient weight: obese Heart: regular rate and rhythm Lungs: clear to auscultation Airway: Mallampati scale class II Neurological: alert and oriented Last oral intake: >/= 8 hours ASA classification: II Emergent: no Anesthetic plan: proceed Anesthesia type and monitoring: regional spinal and standard monitoring Results Review: All pre-operative results and documents have been reviewed as part of the pre-operative evaluation. Informed Consent: The patient's anesthetic plan and its attendant risks and benefits were discussed with the patient/family/POA. Questions were solicited and answers provided to the satisfaction of the patient/family/POA.
--- NOTE | 2021-06-19 07:11 | PM.IMHP ---
H&P: HPI History of Present Illness Date/Time: 06/19/21 07:11 30-year-old 3 para 2002 presents for repeat delivery. card abnormalities and records are on the chart. We have discussed tubal ligation she does desire. we have discussed the permanence failure rate increased risk of ectopic and regret and she does I was to proceed. Chief Complaint: Review of Systems Review of Systems: All systems reviewed & are unremarkable except as noted in HPI and below PMFSH Past Medical History Medical History Abnormal Pap smear of cervix x3 with biopsy Asthma Hypertension Surgical History Surgical History Delivery by section (11/12/19) rpt c/s H/O section (04/06/15) primary c/s nonreassuring FHT H/O colposcopy with cervical biopsy (10/01/11) colpo cervical bx/ECC- chronic cervicitis w/ focal squamous [place] teeth extracted Family History Family History Father Acute myocardial infarction Grandparent Family history of malignant neoplasm of breast Acute myocardial infarction Lupus Mother Family history of pancreatic disease Lupus Social History Social History Smoking status: Never smoker Alcohol intake: never Substance use: never Substance use type: does not use Additional living arrangements comments: spouse Additional occupation/education comments: Nurse Gender identity (if verbalized by the patient): Female Sexual Orientation (if Verbalized by the Patient): Straight or Heterosexual Spiritual care concerns: No Meds Home Medications and Allergies Home Medications Medication Instructions Recorded Confirmed Type PNV cmb#95-ferrous fumarate-FA 1 tablet PO DAILY 11/07/19 06/19/21 History [] albuterol sulfate 2 puff INHALATION QID PRN 11/07/19 06/19/21 History magnesium 250 mg tablet 250 mg PO BID tablet 04/11/21 06/19/21 History Allergies Allergy/AdvReac Type Severity Reaction Status Date / Time No Known Allergies Allergy Unknown Verified 06/19/21 06:02 Vital Signs Vital Signs - 24 hr 06/19/21 05:52 06/19/21 06:10 06/19/21 06:38 Temperature 98.5 F Pulse Rate 78 75 Blood Pressure 136/99 H 130/96 H Exam Const: General: cooperative, healthy appearing and comfortable Resp: Effort & Inspection: normal respiratory effort Auscultation: clear to auscultation bilaterally Cardio: Rate: regular rate Rhythm: regular rhythm GI: Auscultation: normal bowel sounds : External Female Exam: normal external appearance Speculum Exam - Vagina: normal appearance of the vagina Bimanual exam- vagina & uterus: enlarged ( fundal height 40cm heart tones 140) Assessment and Plan Assessment and plan (1) 39 weeks gestation of : Code(s): Z3A.39 - 39 weeks gestation of Status: Acute (2) Previous delivery affecting : Code(s): O34.219 - Maternal care for unspecified type scar from previous delivery Status: Acute (3) Encounter for female sterilization procedure: Code(s): Z30.2 - Encounter for sterilization Status: Acute
--- NOTE | 2021-06-19 07:15 | WPDHPUPDATE1 ---
History and Physical Update Update Date/Time: 06/19/21 07:15 History and Physical has been reviewed, including an updated exam of the patient. There are NO changes in the patient's condition. Risks, benefits, and alternatives have been discussed and questions answered. Patient agrees to proceed with procedure.
--- NOTE | 2021-06-19 08:20 | PM.OBPRVD ---
OB - Delivery Note Procedure Procedure: Procedures Operation Date: 06/19/21 07:30 <No data on this case meets the specified criteria> Events: Breech Presentation, Previous Delivery and Other (Undesired fertility) Route of delivery: (With bilateral salpingectomy) Specimen: Yes (Tubes x2) Quantitative Blood Loss (ml): 525 Anesthesia type: Spinal Disposition: PACU Narrative: Patient prepped and draped manner this procedure. Pfannenstiel incision was made which was then carried down to the fascia. Fascial incision was extended bilaterally the length of the skin incision. Superiorly inferiorly dissected away from the rectus muscles with fair amount scarring noted. Bladder flap was developed and the uterus was incised with clear fluid noted. Lower segment was extended and the feet were grasped and gently delivered left arm then right arm and the head without difficulty. Cord clamped and cut placenta removed manually and the uterus was exteriorized. Uterus was cleared of membranes and clots and closed using 0 Monocryl in running interlocking manner from the left angle the right angle with good approximation hemostasis noted. Pressure was placed on the incision and bilaterally the tubes were grasped in the distal 2/3 were ligated and the tube was removed. Uterus was then turned to the abdomen both stumps were noted be hemostatic and the uterine incision itself was hemostatic as well. All subfascial tissue was noted hemostatic and the fascia was approximated using 0 Vicryl from left angle to midline and right angle to midline with good approximation hemostasis noted. Subcutaneous tissue was irrigated cauterized small bleeders and approximated using a 0 plain suture. Pepe were then used to approximate the skin edges. Patient was then sent to recovery room in stable condition. Baby Weeks of gestation at delivery: 39 gender: Male Weight (pounds): 8 Weight (ounces): 5 presentation: breech Placenta delivery description: Manual Removal Cord Vessel Description: 3 Vessels score one minute: 9 score five minutes: 9 AMG Delivery Billing Delivery Delivery: Delivery Charge
[2021-06-19] MEDS: LORATADINE 10 MG TABLET PO ×2 (10:19→23:52)
--- NOTE | 2021-06-19 12:38 | PC.NURSE ---
1230 - Brief introduction made. Mother independently latched to the right breast in cradle position. detached from right breast and the nipple was tilted/slanted. Dr. Gil is here for assessment. Mother encouraged to call for assistance with latching, positioning, if infant doesn't latch or there is discomfort with latching. Mother voice understanding. Reported to primary RN.
[2021-06-19] MEDS: ONDANSETRON INJ 4 MG/2 ML VIAL IV PUSH (13:48)
[2021-06-19] MEDS: DEXTROSE 5%/0.45% SOD CHL 1,000 ML 125 ML IV CONT (16:00)
[2021-06-19] MEDS: DOCUSATE SODIUM 100 MG CAPSULE PO (16:01)
[2021-06-20 00:29] VITALS: BP 125/86; PULSE 84; PULSE 90; RESP 16; RESP 18; TEMP 36.8; O2SAT 98
[2021-06-20] MEDS: IBUPROFEN 600 MG TABLET PO ×4 (02:38→22:30)
[2021-06-20 05:25] VITALS: BP 109/65; PULSE 92; RESP 18; TEMP 36.9; O2SAT 97
[2021-06-20] MEDS: SIMETHICONE 80 MG TAB.CHEW PO ×4 (05:39→22:30)
[2021-06-20 05:44] LABS: Basophils Percent Auto 0.4 % (0.2-1.2); Eosinophils Percent Auto 0.4 % (0-4.4); Hematocrit 34.3 % (37.0-47.0); Hemoglobin 11.1 g/dL (12.0-15.0); Immature Granulocyte Absolute 0.03 K/mm3 (0.00-0.031); Immature Granulocyte Percent A 0.3 % (0-0.5); Lymphocytes Absolute Auto 2.48 K/mm3 (0.9-3.2); Lymphocytes Percent Auto 23.9 % (18.3-44.2); Mean Corpuscular HGB Conc 32.4 g/dl (32-36); Mean Corpuscular Hemoglobin 27.7 pg (26-34); Mean Corpuscular Volume 85.5 fl (80-100); Mean Platelet Volume 12.1 fl (7.4-10.4); Monocytes Absolute Auto 0.7 K/mm3 (0.1-0.6); Monocytes Percent Auto 6.7 % (2.6-8.5); Neutrophils Absolute Auto 7.1 K/mm3 (1.3-6.7); Neutrophils Percent Auto 68.3 % (45.5-73.1); Platelet Count Result 149 k/mm3 (150-375); Red Blood Count 4.01 M/mm3 (4.2-5.4); Red Cell Distribution Width 14.3 % (11.5-14.5); White Blood Count 10.4 K/mm3 (4.5-10.0)
[2021-06-20 07:30] VITALS: BP 108/70; PULSE 81; RESP 18; TEMP 36.8; O2SAT 97
[2021-06-20] MEDS: DOCUSATE SODIUM 100 MG CAPSULE PO ×2 (09:01→16:07)
[2021-06-20] MEDS: MULTIVIT/MIN/PREN/FOL AC/IRON TABLET 1 TAB PO (09:01)
[2021-06-20] MEDS: WITCH HAZEL 40 PADS 1 PAD TOPICAL (09:10)
[2021-06-20] MEDS: DIBUCAINE 1% OINTMENT 30 GM TUBE 1 APPLIC TOPICAL (09:10)
--- NOTE | 2021-06-20 09:40 | WPDANLDPN2 ---
Anes-Prog Note L&D Date/Time: 06/20/21 09:40 Comfortable throughout: section Neuraxial method: spinal Epidural/Spinal procedure site: clean & non-tender Neuro status: Neuro function grossly intact. Cardiovascular status: normal Respiratory status: normal Airway patency: baseline Mental status: baseline Post-Op hydration status: normal Vital Signs: Last Vital Signs Temp 98.3 F 06/20/21 07:30 Pulse 81 06/20/21 07:30 Resp 18 06/20/21 07:30 BP 108/70 06/20/21 07:30 Pulse Ox 97 06/20/21 07:30 Pain score (VAS): 0 I/O: Intake & Output 06/19/21 06/20/21 06/20/21 23:59 07:59 15:59 Intake Total 980 740 Output Total 2650 2425 Balance -1679 -7257 Post-procedural complaints: pruritis severe, treatment refractory Patient feedback: Patient satisfied with anesthetic care.
--- NOTE | 2021-06-20 09:41 | WPDANLDNPN2 ---
Anes-Prog Note L&D-Neuraxial Date/Time: 06/20/21 09:41 Neuraxial medications: intrathecal PF morphine Opiod-related complaints: pruritis severe, treatment refractory Patient feedback: Patient satisfied with post-operative pain management.
--- NOTE | 2021-06-20 11:19 | PC.NURSE ---
1030 - Mother verbalizes she is able to independently latch with appropriate positioning/alignment to the right breast in cross cradle position. She denies any nipple discomfort and is responsively . Infant is currently meeting outcomes for weight, output, jaundice and feeding frequencies of 8-12 times in 24 hours. Mother declines any additional assistance/education at this time. Mother is encouraged to call for assistance if her infant doesn?t latch or there is discomfort with latching. Mother voiced understanding of information shared and mom and baby guide reviewed for additional resource information . Reported to the primary RN.
--- NOTE | 2021-06-20 18:00 | P.PNOB_ITS ---
OB - PN: Subj Subjective Date/time seen: 06/20/21 18:00 Postop day 1 repeat delivery with bilateral salpingectomy. Patient is tolerating regular diet ambulating voiding and is on oral pain medication. States she would like to be discharged home tomorrow if able. OB - PN: Obj Data Labs CBC & Chem 7: 06/20/21 05:29 Labs: Laboratory Results - last 24 hr 06/20/21 05:29 WBC 10.4 H RBC 4.01 L Hgb 11.1 L Hct 34.3 L MCV 85.5 MCH 27.7 MCHC 32.4 RDW 14.3 Plt Count 149 L MPV 12.1 H Immature Gran % (Auto) 0.3 Neut % (Auto) 68.3 Lymph % (Auto) 23.9 [place] % (Auto) 6.7 Eos % (Auto) 0.4 Baso % (Auto) 0.4 Lymph # (Auto) 2.48 [place] # (Auto) 0.7 H Eos # (Auto) 0.0 Baso # (Auto) 0.0 Abs Immat Gran (auto) 0.03 Absolute Neuts (auto) 7.1 H Absolute Nucleated RBC 0.0 Nucleated RBC % 0.0 OB - PN A/P Plan day: 1 Plan: routine care Comments: If all is well will discharge home tomorrow with staple removal early next week. Time Spent With Patient Time: Total time spent is greater than 50% in coordination of care (as documented) at patient's floor/unit and/or counseling patient: Time with patient: 15 - 25 minutes Exam Const: General: cooperative, healthy appearing and comfortable GI: Inspection: incision ( Bandage removed and bhumika intact.)
--- NOTE | 2021-06-20 18:11 | P.DS_ITS ---
DS: Admitting Diagnosis Discharge Date 06/21/2021 Admitting Diagnosis OB - DS: Summary OB Procedures : None OB Procedures Intrapartum: and Tubal ligation OB Procedures: : None Peripartum Data Procedures: Procedures Operation Date: 06/19/21 07:30 Actual Procedure Side Surgeon p Repeat Section wtih Bilateral Tubal Ligation Not Applicable Lex Terrazas MD Time Spent with Patient Time attestation: Total time spent providing and/or coordinating discharge services: DS: Data Data Completed and Pending Completed studies during hospitalization: Pending at discharge 06/19/21 07:59 Surgical [PTH] Routine Surgical [PTH] Routine Labs on day of discharge: Labs from last 24 hours 06/20/21 05:29 WBC 10.4 H RBC 4.01 L Hgb 11.1 L Hct 34.3 L MCV 85.5 MCH 27.7 MCHC 32.4 RDW 14.3 Plt Count 149 L MPV 12.1 H Immature Gran % (Auto) 0.3 Neut % (Auto) 68.3 Lymph % (Auto) 23.9 [place] % (Auto) 6.7 Eos % (Auto) 0.4 Baso % (Auto) 0.4 Lymph # (Auto) 2.48 [place] # (Auto) 0.7 H Eos # (Auto) 0.0 Baso # (Auto) 0.0 Abs Immat Gran (auto) 0.03 Absolute Neuts (auto) 7.1 H Absolute Nucleated RBC 0.0 Nucleated RBC % 0.0 Discharge Plan Discharge Discharging Clinician: Lex Terrazas Patient Disposition: Home, Self-Care Activity: as tolerated Diet: as tolerated Wound Care Instructions: incision open to air Discharge Instructions: office Saturday for staple removal Patient Instructions: Antibiotic Form Stand Alone Forms: General Discharge Information Follow-up/Referrals: Lex Terrazas MD [Physician] - 3 Weeks Discharge Medications: New hydrocodone-acetaminophen 5-325 mg Tablet 1 tablet PO Q3H Qty: 20 RF: 0 ibuprofen 600 mg Tablet 600 mg PO Q6H PRN (Reason: Cramping) Qty: 30 RF: 0 Continued magnesium 250 mg tablet 250 mg PO BID RF: 0 albuterol sulfate 90 mcg/actuation Hfa Aerosol Inhaler 2 puff INHALATION QID PRN (Reason: Wheezing) RF: 0 PNV cmb#95-ferrous fumarate-FA [] 28 mg iron- 800 mcg Tablet 1 tablet PO DAILY RF: 0 Date of admission: 06/19/21 05:35 Primary Care Provider: PHYSICIAN,SAMPLE FINISHER Admitting Provider: Lex Terrazas Attending physician on admission: Lex Terrazas Condition: Stable
[2021-06-20 19:00] VITALS: BP 130/87; PULSE 86; RESP 18; TEMP 36.8
[2021-06-21] MEDS: SIMETHICONE 80 MG TAB.CHEW PO ×2 (04:56→09:34)
[2021-06-21] MEDS: IBUPROFEN 600 MG TABLET PO ×2 (04:57→10:55)
[2021-06-21 07:25] VITALS: BP 124/87; PULSE 68; RESP 18; TEMP 36.9; O2SAT 98
[2021-06-21] MEDS: MULTIVIT/MIN/PREN/FOL AC/IRON TABLET 1 TAB PO (08:56)
[2021-06-21] MEDS: DOCUSATE SODIUM 100 MG CAPSULE PO (08:56)
[2021-06-21] MEDS: BISACODYL 10 MG SUPPOSITORY RECTAL (09:34)
--- NOTE | 2021-06-21 10:17 | PC.NURSE ---
Patient instructed on viewing the discharge video Mother & Baby Care, The First Two Weeks . Patient was given the opportunity and encouraged to ask questions. Patient verbalized understanding of information shared and has been given the mother/baby guide for home reference.
--- NOTE | 2021-06-21 11:13 | PC.NURSE ---
0900 - Mother led the conversation with her experience and plan to feed her so far and her ability to independently latch infant optimally without discomfort. Reminded parents to use good handwashing technique to prevent infection. Mother is feeding appropriately for growth of infant and understands stimulating to eat if needed. has had appropriate feedings in the last 24 hours meets the outcomes for weight, output and jaundice at this time. Mother states she is confident to continue effectively and supplementing her infant at home or when to call for assistance and denies any additional assistance or education at this time. Reinforced understanding of milk production, transition of milk, signs of adequate intake, prevention/relief of engorgement, responsive after visualizing feeding cues, the different methods of stimulating infant to breastfeed 2-3 hours after the start of the last feeding, community resources, medication information reviewed per [employer] and when to call a provider using the resource of the mom and baby guide/[facility] website. Mother voiced understanding of the education shared. Reported to the primary RN.
--- NOTE | 2021-06-22 08:07 | PM.OBDSVD ---
DS: Admitting Diagnosis Discharge Date 06/21/21 Admitting Diagnosis OB - DS: Summary OB Procedures : None OB Procedures Intrapartum: and Tubal ligation OB Procedures: : None Peripartum Data Procedures: Procedures Operation Date: 06/19/21 07:30 Actual Procedure Side Surgeon p Repeat Section wtih Bilateral Tubal Ligation Not Applicable Lex Terrazas MD Time Spent with Patient Time attestation: Total time spent providing and/or coordinating discharge services: DS: Data Data Completed and Pending Completed studies during hospitalization: Pending at discharge 06/19/21 07:59 Surgical [PTH] Routine Surgical [PTH] Routine Discharge Plan Discharge Discharging Clinician: Lex Terrazas Patient Disposition: Home, Self-Care Activity: as tolerated Diet: as tolerated Wound Care Instructions: incision open to air Discharge Instructions: office Saturday for staple removal Education: Mom and Baby Guide Given to: Mother Follow-Up: Call your delivering provider's office for an appointment to be seen in: Saturday for Staple removal Mom and baby should come to the [facility] for the follow-up appointment. Appointment Date/Time: June 22, 2021 at 10:00 am What to expect at your follow-up visit: Physical Assessment Call [phone] if you are unable to keep your appointment time. BREAST CARE: * Wear a snug supportive bra. * For engorgement discomfort: Breast Feeding: * Apply warm moist washcloths * Express milk as needed to relieve engorgement * Wear loose clothing * For sore nipples: * Identify correct latch-on * Apply warm moist washcloths before and after nursing * Air dry nipples after nursing * May apply Lansinoh cream to nipples ABDOMINAL INCISION: (if applicable) * Allow incision to air dry * Do NOT use lotions for powders on your incision * When showering, allow soap and water to run over the incision, but do not wash incision EPISIOTOMY/PERINEAL CARE: * Until bleeding stops, use your kecia bottle after urinating * Change your pad frequently throughout the day * No tub baths until seen by your physician - You may shower ACTIVITY: * Rest as much as possible. * Do not exercise or lift anything heavier than your baby (such as laundry or other children.) * Avoid stairs or driving as much as possible. * Do not put anything into the vagina. No douching, tampons, or sexual activity until seen by physician. NOTIFY PHYSICIAN IF YOU HAVE ANY QUESTIONS OR IF ANY OF THE FOLLOWING SYMPTOMS OCCUR: * If your incision becomes red, swollen, or more painful than what you have experienced in the hospital. * If your vaginal bleeding becomes foul smelling. * If your vaginal bleeding becomes more heavy than a period or if your bleeding changes from pink to bright red. However, you may pass an occasional walnut-sized clot once or twice for the first week . * If you experience a sharp, shooting pain in you calves. * If you discover a hard, reddened area on your breast or if you experience flu-like symptoms. DIET: * Eat regular, well-balanced meals. * Drink plenty of fluids daily. If , drink to thirst. Stand Alone Forms: General Discharge Information Follow-up/Referrals: Lex Terrazas MD [Physician] - 3 Weeks Discharge Medications: New hydrocodone-acetaminophen 5-325 mg Tablet 1 tablet PO Q3H Qty: 20 RF: 0 ibuprofen 600 mg Tablet 600 mg PO Q6H PRN (Reason: Cramping) Qty: 30 RF: 0 Continued magnesium 250 mg tablet 250 mg PO BID RF: 0 albuterol sulfate 90 mcg/actuation Hfa Aerosol Inhaler 2 puff INHALATION QID PRN (Reason: Wheezing) RF: 0 PNV cmb#95-ferrous fumarate-FA [] 28 mg iron- 800 mcg Tablet 1 tablet PO DAILY RF: 0 Date of admission: 06/19/21 05:35 P
[2021-06-22 10:35] VITALS: BP 127/85; PULSE 72; RESP 22; TEMP 36.9; O2SAT 100
== END 2021-06-21 16:15 | disposition home or self-care (01) | DRG 785 ==
LOC: ANHLDR 05:43 → ANHOB2 11:02
PROVIDERS: Admitting Provider Obstetrics & Gynecology; Visit Provider Obstetrics & Gynecology
PROC: 10D00Z1 Extraction of Products of Conception, Low, Open Approach (ICD-10-PCS; CPT 59514; principal; 2021-06-19 07:30)
DX: O34.211 Maternal care for low transverse scar from previous cesarean delivery (principal); Z37.0 Single live birth; Z3A.39 39 weeks gestation of pregnancy; Z30.2 Encounter for sterilization; O32.1XX0 Maternal care for breech presentation, not applicable or unspecified
CPT/HCPCS: 36415; 85025; 88302; A9270; J0131; J2274; J2370; J2405; J2590; J7120

== ENCOUNTER 2022-01-23 07:11 | Emergency (ER) | payer OTHER, SELFPAY ==
[2022-01-23] VITALS (8 sets, daily range): BP systolic 100–142; BP diastolic 78–84; PULSE 75–108; RESP 19–30; TEMP 37.4; O2SAT 91–100
--- NOTE | ~2022-01-23 | XR_ITS ---
EXAMINATION: XR chest 2V 01/23/2022 08:14 INDICATION: Cough for 4 days PROCEDURE: 2 view chest COMPARISON: 08/18/2008 FINDINGS: The lungs are clear. The cardiomediastinal silhouette is within normal limits. There are no pleural effusions. There is no pneumothorax suspected. IMPRESSION: 1: NO ACUTE CARDIOPULMONARY DISEASE. Reviewed, dictated and finalized at location D. TERIA CLERK
--- NOTE | 2022-01-23 07:16 | ECG_ITS ---
Measurements Intervals [place] Rate: 97 P: 35 ND: 135 QRS: 31 QRSD: 98 T: 48 QT: 325 QTc: 414 Interpretive Statements SINUS RHYTHM DELAYED PRECORDIAL R/S TRANSITION BORDERLINE ECG NO PREVIOUS ECG AVAILABLE FOR COMPARISON Electronically Signed On 01-23-2022 9:02:15 PRE SALES TECHNICAL ENGINEER by Chadwick Alonzo D.O.
--- NOTE | 2022-01-23 07:56 | ED.GENADULT ---
HPI - General Adult General Chief complaint: Chest Pain Stated complaint: SOB, chest tightness Time Seen by Provider: 01/23/22 07:34 History of Present Illness HPI narrative: 51-year-old female presents with cough, body aches, fever for the past few days. Related Data Home Medications Medication Instructions Recorded Confirmed albuterol sulfate 90 mcg/actuation 2 puff inhalation QID PRN Wheezing 11/07/19 10/10/21 aerosol inhaler Allergies Allergy/AdvReac Type Severity Reaction Status Date / Time No Known Allergies Allergy Unknown Verified 01/23/22 07:26 Review of Systems Review of Systems: CONSTITUTIONAL: Denies fever, chills, or sweats. EYES: Denies visual changes, redness, or discharge. ENT: Denies rhinorrhea, congestion, sore throat, or otalgia. CARDIOVASCULAR: Denies chest pain, palpitations, or edema. RESPIRATORY: Denies cough or dyspnea. GASTROINTESTINAL: Denies abdominal pain, nausea, vomiting, or diarrhea. GENITOURINARY: Denies dysuria or hematuria. SKIN: Denies rash or itching. MUSCULOSKELETAL: Denies back pain, joint pain, or myalgia. NEUROLOGIC: Denies headache, numbness, or weakness. PSYCHIATRIC: Denies anxiety or depression. [facility] Past Medical History Medical History Abnormal Pap smear of cervix x3 with biopsy Asthma Hypertension Surgical History Surgical History Delivery by section (11/12/19) rpt c/s Delivery by section (06/19/21) rpt c/s with Tubal ligation H/O section (04/06/15) primary c/s nonreassuring FHT H/O colposcopy with cervical biopsy (10/01/11) colpo cervical bx/ECC- chronic cervicitis w/ focal squamous [place] teeth extracted Family History Family History Father Acute myocardial infarction Grandparent Family history of malignant neoplasm of breast Acute myocardial infarction Lupus Mother Family history of pancreatic disease Lupus Social History Social History Smoking status: Never smoker Alcohol intake: never Substance use: never Substance use type: does not use Living arrangements: other Additional living arrangements comments: spouse Occupation/Education: occupation Additional occupation/education comments: Nurse Gender identity (if verbalized by the patient): Female Sexual Orientation (if Verbalized by the Patient): Straight or Heterosexual Spiritual care concerns: No Exam Narrative: GENERAL: Well-appearing, well-nourished, and in no acute distress. HEAD: Normocephalic, atraumatic. EYES: PERRLA and EOMI. ENT: Nares clear, no rhinorrhea or epistaxis. Mucous membranes moist. NECK: Supple. CHEST: Clear to auscultation. No respiratory distress. HEART: Regular rate and rhythm. No murmur heard. Normal peripheral pulses. ABDOMEN: Soft, nontender, nondistended, normal active bowel sounds. EXTREMITIES: Normal range of motion. No edema. SKIN: Warm, dry, no rash. NEURO: No focal deficits. Alert and oriented x3. PSYCH: Normal mood and affect. Course Vital Signs Vital signs: Vital Signs Temperature 99.3 F 01/23/22 07:20 Pulse Rate 104 H 01/23/22 07:20 Respiratory Rate 19 01/23/22 07:20 Blood Pressure 130/81 01/23/22 07:20 Pulse Oximetry 99 01/23/22 07:20 Oxygen Delivery Room Air 01/23/22 07:20 Temperature 99.3 F 01/23/22 07:20 Pulse Rate 79 01/23/22 10:18 Respiratory Rate 28 H 01/23/22 10:18 Blood Pressure 120/79 01/23/22 10:18 Pulse Oximetry 98 01/23/22 10:18 Oxygen Delivery Room Air 01/23/22 07:28 Medical Decision Making MDM Narrative Medical decision making narrative: Viral swabs are negative and chest x-ray with no acute cardiopulmonary abnormality. Lungs are clear. Patient continues to be afebrile. She is stable t
[2022-01-23 08:16] LABS: Influenza A QL RT-PCR Positive (Negative); Influenza B QL RT-PCR Negative (Negative); RSV RNA, RT-PCR Negative (Negative); SARS-CoV-2 RNA PCR Negative
[2022-01-23] MEDS: ACETAMINOPHEN 500 MG TABLET 1000 MG PO (08:20)
== END 2022-01-23 10:19 | disposition home or self-care (01) ==
PROVIDERS: Emergency Provider Emergency Medicine
DX: J06.9 Acute upper respiratory infection, unspecified (principal); Z20.822 Contact with and (suspected) exposure to COVID-19; J45.909 Unspecified asthma, uncomplicated; I10 Essential (primary) hypertension
CPT/HCPCS: 71046; 87637; 93005; 99283; A9270

== ENCOUNTER 2022-05-10 06:48 | Outpatient (CLI) | payer OTHER, SELFPAY ==
[2022-05-10 07:30] LABS: Basophils Absolute Auto 0.1 K/mm3 (0.0-0.1); Basophils Percent Auto 0.7 % (0.2-1.2); Eosinophils Absolute Auto 0.1 K/mm3 (0-0.3); Hematocrit 43.3 % (37.0-47.0); Hemoglobin 14.3 g/dL (12.0-15.0); Immature Granulocyte Absolute 0.02 K/mm3 (0.00-0.031); Immature Granulocyte Percent A 0.2 % (0-0.5); Lymphocytes Absolute Auto 2.88 K/mm3 (0.9-3.2); Lymphocytes Percent Auto 35.8 % (18.3-44.2); Mean Corpuscular Hemoglobin 26.5 pg (26-34); Mean Corpuscular Volume 80.3 fl (80-100); Mean Platelet Volume 10.3 fl (7.4-10.4); Monocytes Absolute Auto 0.5 K/mm3 (0.1-0.6); Monocytes Percent Auto 6.3 % (2.6-8.5); Neutrophils Absolute Auto 4.5 K/mm3 (1.3-6.7); Platelet Count Result 309 k/mm3 (150-375); Red Blood Count 5.39 M/mm3 (4.2-5.4)
[2022-05-10 07:41] LABS: Alanine Aminotransferase 20 U/L (6-35); Albumin Level 4.7 g/dL (3.5-5.1); Alkaline Phosphatase 84 U/L (38-126); Anion Gap 4 mmol/L (8-16); Aspartate Amino Transferase 21 U/L (14-36); Bilirubin,Total 0.5 mg/dL (0.2-1.3); Blood Urea Nitrogen 11 mg/dL (7-17); Calcium 9.3 mg/dL (8.4-10.2); Carbon Dioxide 32 mmol/L (22-30); Chloride 103 mmol/L (98-107); Cholesterol 191 mg/dL (0-200); Estimated Glomerular Filt Rate > 60; Glucose 101 mg/dL (65-110); HDL Direct 65 mg/dL; Potassium 4.1 mmol/L (3.4-5.0); Sodium 139 mmol/L (137-145); Triglycerides 79 mg/dL (<150)
[2022-05-10 07:51] LABS: LDL Cholesterol Direct 89 mg/dL
[2022-05-10 07:58] LABS: T4 Thyroxine 9.39 ug/dL (5.53-11.0)
[2022-05-10 08:11] LABS: Total Triiodothyronine (T3) 1.26 NG/ML (0.97-1.69)
== END 2022-05-10 06:49 | disposition home or self-care (01) ==
LOC: ANHLAB 06:50
PROVIDERS: PCP Nurse Practitioner Family; Visit Provider Nurse Practitioner Family
DX: Z00.00 Encounter for general adult medical examination without abnormal findings (principal); R73.01 Impaired fasting glucose; E78.2 Mixed hyperlipidemia
CPT/HCPCS: 36415; 80053; 80061; 84436; 84443; 84480; 85025

== ENCOUNTER 2022-10-11 00:53 | Day surgery (SDC) | payer OTHER, SELFPAY ==
[2022-10-02 10:47] VITALS: BMI 33.6
--- NOTE | 2022-10-02 11:13 | PC.NURSE ---
Report to the Outpatient Waiting Room, entrance under the green pavilion located off [facility], at 0600 on 10-11-22. Planned Procedure Time: 0730. Time changes happen often and if your time is changed the preop area will call you the afternoon before. - You and your visitor will be asked to self-screen and do not enter if you have any COVID symptoms. - A mask is optional within the hospital at this time. Patients may have clear liquids (water, carbonated beverages, clear teas, apple juice) until 3 hours prior to surgery with a maximum of 20 ounces. 0430 - No food from midnight until time of surgery - Infants may have breast milk until 4 hours before surgery, formula 6 hours prior to surgery. - Children will be allowed to drink immediately following surgery. If applicable, please bring a bottle or sippy cup to assist with drinking. Juice, water, soda, and popsicles are readily available. For infants on formula, please bring formula the day of surgery. Pacifiers are allowed. Take the following medications with a SIP of water the morning of surgery: None; Bring albuterol inhaler DOS DO NOT STOP ANY OF YOUR OTHER PRESCRIPTION MEDICATIONS PRIOR TO SURGERY ?EXCEPT THE FOLLOWING Medications to discontinue per physician: vitamins and supplements Date to take last dose: 10-08-22 Please no make-up, nail ugandan, hairspray, perfume, deodorant, or body powder the day of surgery. No jewelry (including any body piercings) or valuables the day of surgery, leave them at home. Please take a shower or bath the night before, or the morning of, surgery with an antibacterial soap. Wear comfortable, loose fitting clothing. Children are encouraged to wear pajamas. - Jewelry must be removed prior to entering the operating room. Rings and piercings that are not removed may be cut off. - The hospital will not accept responsibility for valuables. - Please leave all valuables, including medications, at home the day of surgery. If you are going home after surgery, a licensed team truck driver must drive you home. - NO public transportation without another adult if you receive anesthesia. - We recommend that an adult stay with you for 24 hours following discharge. - We also recommend that you do not drive, make important decision, drink alcoholic beverages, or take any drugs that were not prescribed by your health care provider for at least 24 hours after your discharge time. For Pediatric surgeries, we recommend two adults accompany the child home. Follow any additional instructions given to you from your surgeon. If you or anyone in your household have experienced Covid symptoms in the past week, please notify your surgeon or the nurse liaison at the phone number below for possible testing. Telephone instructions given to Heavenly Moreira and asked if any additional questions and then verbalized understanding. Patient advised to call surgeon office or pre surgery nurse liaison [phone] if any additional questions.
[2022-10-11] VITALS (10 sets, daily range): BP systolic 117–142; BP diastolic 77–87; PULSE 79–97; RESP 12–18; TEMP 36.2–36.4; O2SAT 94–100
[2022-10-11 06:39] LABS: Urine Cotinine NEGATIVE
[2022-10-11] MEDS: LACTATED RINGERS 1,000 ML 30 ML IV CONT ×3 (06:50→12:18)
--- NOTE | 2022-10-11 07:11 | WPDANESEPPF ---
Anes - Initial Pre Proc Eval Procedure: Operation Date: 10/11/22 07:30 Proposed Procedures p Bilateral Breast Augmentation - Tigre Carranza MD s Bilateral Breast Mastopexy with Galaflex - Tigre Carranza MD Date/Time: 10/11/22 07:11 Surgeon: Tigre Carranza MD Pre Op Diagnosis: micromastia Patient Data Age: 31 Gender: F Height: 1.63 m Weight: 85 kg Last Vital Signs Temp 97.2 F L 10/11/22 06:52 Pulse 82 10/11/22 06:52 Resp 16 10/11/22 06:52 BP 142/77 H 10/11/22 06:52 Pulse Ox 100 10/11/22 06:52 O2 Del Method Room Air 10/11/22 06:52 Allergies Allergy/AdvReac Type Severity Reaction Status Date / Time morphine Allergy Intermediate Itching Verified 10/11/22 06:24 Home Medications Medication Instructions Recorded Confirmed Type albuterol sulfate 90 mcg/actuation 2 puff inhalation QID PRN Wheezing 11/07/19 10/11/22 History aerosol inhaler multivitamin 1 tablet PO DAILY 05/01/22 10/11/22 History biotin 1 mg capsule 1 mg PO DAILY 10/02/22 10/11/22 History cholecalciferol (vitamin D3) 10 See Rx Instructions .Route .COMPLEX 10/02/22 10/11/22 History mcg (400 unit) capsule (Vitamin D3) magnesium gluconate 27 mg 27 mg PO DAILY 10/02/22 10/11/22 History magnesium (500 mg) tablet vitamin B complex 1 cap PO DAILY 10/02/22 10/11/22 History Laboratory Tests 10/11/22 06:22 Cotinine Negative Patient hx anesthesia problems: none Family hx anesthesia problems: none Results Review: All pre-operative results and documents have been reviewed as part of the pre-operative evaluation. [facility] Past Medical History Medical History Abnormal Pap smear of cervix x3 with biopsy Asthma Hypertension Migraines Surgical History Surgical History Delivery by section (11/12/19) rpt c/s Delivery by section (06/19/21) rpt c/s with Tubal ligation H/O section (04/06/15) primary c/s nonreassuring FHT H/O colposcopy with cervical biopsy (10/01/11) colpo cervical bx/ECC- chronic cervicitis w/ focal squamous [place] teeth extracted (~2011) Family History Family History Father Acute myocardial infarction Hypertension Grandparent Breast cancer Thyroid disorder Mother Family history of pancreatic disease Lupus Heart disease Grandparent Heart disease Skin cancer Grandparent Breast cancer Diabetes mellitus Grandparent Hypertension Heart disease Social History Social History Smoking status: Never smoker Second hand tobacco smoke exposure: No Alcohol intake: never Drinks per week: 1 Substance use: never Substance use type: does not use Living arrangements: with family Additional living arrangements comments: spouse Occupation/Education: occupation Additional occupation/education comments: Nurse at [employer] Gender identity (if verbalized by the patient): Female Sexual Orientation (if Verbalized by the Patient): Straight or Heterosexual Spiritual care concerns: No Agree to blood products: Yes Anes - Eval Final PreProcedure Day of Procedure 10/11/22 07:11 Patient weight: obese Heart: regular rate and rhythm Lungs: clear to auscultation Airway: Mallampati scale class II Neurological: alert and oriented Last oral intake: >/= 8 hours ASA classification: II Emergent: no Anesthetic plan: proceed Anesthesia type and monitoring: general LMA and standard monitoring Results Review: All pre-operative results and documents have been reviewed as part of the pre-operative evaluation. Informed Consent: The patient's anesthetic plan and its attendant risks and benefits were discussed with the patient/family/POA. Questions were solicited and answers provided t
--- NOTE | 2022-10-11 07:12 | P.OP_ITS ---
Procedure Note - Detailed Date of Procedure 10/11/22 Pre-op Diagnosis micromastia Post-op Diagnosis Same Procedure Performed Bilateral Augmentation Mastopexy Surgeon Tigre Carranza MD Anesthesia General Findings Bilateral Inverted T Mastopexy Bilateral Superior medial pedicle Bilateral Natrelle Inspira SoftTouch Implants Right - REF# [id number] SN [id number] Left - REF# [id number] SN [id number] Galaflex REF# [id number] Description of Procedure She is here today for bilateral breast augmentation mastopexy. Previously and again today the risks, benefits, alternatives were discussed in extensive detail. I wanted her to be very realistic about the risks involved as well as expectations. I was very upfront and honest about her degree of asymmetry and she will never have symmetry despite best efforts. We discussed aftercare and what to monitor for. Made sure answered all of her questions to her satisfaction today and consent was obtained. Marked in the preoperative holding area with their verification. The patient was taken to the operating room placed supine on the operating table. Anesthesia was provided by anesthesiology. A surgical time-out was taken. We cleansed the skin and 1% lidocaine and 0.25% Marcaine with epinephrine was used anesthetize as a field block. She was prepped and draped in a standard sterile fashion. Tegaderm nipple Gonzalez were placed. A 15 blade used to make an incision just superior to the inframammary fold leaving a cusp of de-epithelized tissue at the t junction. Dissection was continued until the chest wall as identified. I incised the pectoralis major along its inferior border and completely released the inferior border leaving the medial border intact. I created a subpectoral pocket in the appropriate dimensions based on our preoperative planning for the implant. I then copiously irrigated with saline solution and verified a strict hemostasis. Next the use a triple antibiotic and Betadine containing solution to irrigate the pocket. I washed my gloves with the triple antibiotic and Betadine solution. We washed the implant immediately upon opening it with this solution and only opened it when we needed it. I used implant funnel and no-touch technique. The implant was introduced into the pocket using the funnel. Having verified positioning of the implant this was closed using 2-0 PDS. I tailor tacked the breast into position. Placed her in a sitting position. Verified the nipple-areolar location based on preoperative planning as well as intraoperative observations and measurements in full agreement. Suction lipectomy was completed based on S.A.F.E. technique. End point was based on pre-operative planning, intraoperative observations, and rolling pinch which were in full agreement. She was placed supine. I de-epithelialized the pedicle. I then removed the inf erior central portion of the breast need making sure the implant was well protected. I elevated medial and lateral tissue flaps as well for planned closure. Galaflex was soaking on the back table. Trimmed and placed. Sutured into place with 4-0 Vicryl. I closed along the IMF with 2-0 Stratafix. Along the vertical with 2-0 PDS. I closed around the areola with 3-0 strata fix. 3-0 Monocryl along the vertical. 3-0 Stratafix along the IMF. I finally closed everything with running subcuticular 4-0 Monocryl and tissue glue. Fluffs and surgical bra were placed. Estimated Blood Loss 75 Drains No Packing No Pathology None sent Complications No immediate complications Condition Stable Disposition PACU
--- NOTE | 2022-10-11 07:12 | WPDHPUPDATE1 ---
History and Physical Update Update Date/Time: 10/11/22 07:12 History and Physical has been reviewed, including an updated exam of the patient. There are NO changes in the patient's condition. Risks, benefits, and alternatives have been discussed and questions answered. Patient agrees to proceed with procedure.
[2022-10-11] MEDS: ceFAZolin 2 GM/D5W 50 ML 2 GM/50 ML BAG IVPB (07:30)
[2022-10-11] MEDS: fentaNYL CITRATE INJ (*CRX) 100 MCG/2 ML VIAL 25 MCG IV PUSH ×2 (11:09→11:22)
[2022-10-11] MEDS: ONDANSETRON INJ 4 MG/2 ML VIAL IV PUSH (11:54)
[2022-10-11] MEDS: diphenhydrAMINE HCl INJ 50 MG/ML VIAL 6.25 MG IV PUSH (12:18)
[2022-10-11] MEDS: SCOPOLAMINE 1.5 MG PATCH TRANSDERM (12:18)
[2022-10-11] MEDS: oxyCODONE HCL (*CRX) 5 MG TAB IR PO (12:40)
== END 2022-10-11 13:29 | disposition home or self-care (01) ==
PROVIDERS: PCP Nurse Practitioner Family; Visit Provider Surgery Plastic and Reconstructive Surgery
PROC: (CPT 19325; principal; 2022-10-11 07:30)
PROC: (CPT 19316; 2022-10-11 07:30)
DX: Z41.1 Encounter for cosmetic surgery (principal); N64.82 Hypoplasia of breast; J45.909 Unspecified asthma, uncomplicated; I10 Essential (primary) hypertension; Z79.51 Long term (current) use of inhaled steroids; E66.9 Obesity, unspecified; Z68.32 Body mass index [BMI] 32.0-32.9, adult
CPT/HCPCS: 19325; 19316; 80307; A9270; J0171; J0690; J1100; J1170; J1200; J1580; J2250; J2405; J2704; J3010; J7120

== ENCOUNTER 2023-12-13 15:47 | Outpatient (CLI) | payer OTHER, SELFPAY ==
[2023-12-13 16:09] LABS: Add Urine Microscopic? YES; Appearance Urine Clear (Clear); Bacteria Urine None Seen /hpf; Bilirubin Urine Negative (Negative); Blood Urine Trace (Negative); Color Urine Yellow (Yellow); Glucose Urine UA Negative (Negative); Ketones Urine Negative (Negative); Leukocyte Esterase Ur 2+ LEU/UL (Negative); Nitrate Urine Negative (Negative); Non Pathogenic Casts 0-2; Protein Urine Negative (Negative); RBC Urine 0-2 /hpf (0-2); Specific Grav Ur 1.005 (1.001-1.035); Squamous Epithelial Cell Urine Few /hpf (Few); Urobilinogen Urine 0.2 mg/dL (<2.0); WBC Urine 21-50 /hpf (0-3)
== END 2023-12-13 15:48 | disposition home or self-care (01) ==
LOC: ANHLAB 15:49
PROVIDERS: PCP Nurse Practitioner Family; Visit Provider Nurse Practitioner Family
DX: N39.0 Urinary tract infection, site not specified (principal)
CPT/HCPCS: 81001; 87077; 87086; 87186

== ENCOUNTER 2024-08-13 16:40 | Outpatient (CLI) | payer OTHER, SELFPAY ==
--- OUTSIDE RECORDS SUMMARY | 2024-08-13 16:43 | XMS_ITS | Clinical Summary ---
Author Organization [facility] Address [address] [place] [id number] Care Team Providers Care Pca Name Role Phone Rashi Cadet MD Primary Care Provide r Allergies No known active allergies Medications Slynd 4 mg (28) tablet Take 1 tablet by mouth daily Active albuterol HFA (PROVENTIL HFA,VENTOLIN HFA,PROAIR HFA) 90 mcg/actuation inhaler albuterol sulfate HFA 90 mcg/actuation aerosol inhaler INHALE 2 PUFFS BY MOUTH EVERY 4 HOURS Active Active Problems No known active problems Family History Medical History Relation Name Comments Alzheimer's disease Maternal Grandmother Breast cancer Maternal Grandmother Breast cancer Paternal Grandmother Relation Name Status Comments Father Alive Maternal Grandmother Alive Mother Alive Paternal Grandfather Paternal Grandmother Alive Social History Tobacco Use Types Packs/Day Years Used Date Smoking Tobacco: Never Personal Safety Answer Date Recorded Getting School Help Needed Not on file 05/04 Comments Unknown Sex and Gender Information Value Date Recorded Sex Assigned at Not on file Legal Sex Female 8:43 AM CDT Gender Identity Not on file Sexual Orientation Not on file Obstetrics History Plan of Treatment Not on file Insurance CORE Care Teams Pca Relationship Specialty Start Date End Date Rashi Cadet MD [address] [place] [address] PCP - General Family Medicine 05/23/20
--- OUTSIDE RECORDS SUMMARY | 2024-08-13 16:43 | XMS_ITS | Referral Summary ---
Author Organization [facility] Address [address] [place] [id number] Care Team Providers Care Maritime Pilot Name Role Phone Rashi Cadet MD Primary Care Provide r Allergies No known active allergies Medications Slynd 4 mg (28) tablet Take 1 tablet by mouth daily 1 Active albuterol HFA (PROVENTIL HFA,VENTOLIN HFA,PROAIR HFA) 90 mcg/actuation inhaler albuterol sulfate HFA 90 mcg/actuation aerosol inhaler INHALE 2 PUFFS BY MOUTH EVERY 4 HOURS Active Active Problems No known active problems Social History Tobacco Use Types Packs/Day Years Used Date Smoking Tobacco: Never Personal Safety Answer Date Recorded Getting School Help Needed Not on file 05/04 Comments Unknown Sex and Gender Information Value Date Recorded Sex Assigned at Not on file Legal Sex Female 8:43 AM CDT Gender Identity Not on file Sexual Orientation Not on file Plan of Treatment Not on file Insurance [employer] [id number] [place] [phone] Care Teams Maritime Pilot Relationship Specialty Start Date End Date Rashi Cadet MD [address] [facility] [address] [place] [address] PCP - General Family Medicine 05/23/20
[2024-08-13 17:30] LABS: Basophils Absolute Auto 0.1 K/mm3 (0.0-0.1); Basophils Percent Auto 0.8 % (0.2-1.2); Eosinophils Absolute Auto 0.1 K/mm3 (0-0.3); Eosinophils Percent Auto 1.5 % (0-4.4); Hematocrit 41.8 % (37.0-47.0); Hemoglobin 13.6 g/dL (12.0-15.0); Immature Granulocyte Absolute 0.02 K/mm3 (0.00-0.031); Immature Granulocyte Percent A 0.2 % (0-0.5); Lymphocytes Absolute Auto 3.31 K/mm3 (0.9-3.2); Lymphocytes Percent Auto 38.6 % (18.3-44.2); Mean Corpuscular HGB Conc 32.5 g/dl (32-36); Mean Corpuscular Hemoglobin 27.4 pg (26-34); Mean Corpuscular Volume 84.1 fl (80-100); Mean Platelet Volume 10.4 fl (7.4-10.4); Monocytes Absolute Auto 0.6 K/mm3 (0.1-0.6); Monocytes Percent Auto 6.6 % (2.6-8.5); Neutrophils Absolute Auto 4.5 K/mm3 (1.3-6.7); Neutrophils Percent Auto 52.3 % (45.5-73.1); Platelet Count Result 287 k/mm3 (150-375); Red Blood Count 4.97 M/mm3 (4.2-5.4); Red Cell Distribution Width 13.2 % (11.5-14.5); White Blood Count 8.6 K/mm3 (4.5-10.0)
[2024-08-13 17:45] LABS: Alanine Aminotransferase 18 U/L (6-35); Albumin Level 4.5 g/dL (3.5-5.1); Alkaline Phosphatase 80 U/L (38-126); Anion Gap 7 mmol/L (4-12); Aspartate Amino Transferase 24 U/L (14-36); Bilirubin,Total 0.3 mg/dL (0.2-1.3); Blood Urea Nitrogen 13 mg/dL (7-17); Calcium 9.6 mg/dL (8.4-10.2); Carbon Dioxide 29 mmol/L (22-30); Chloride 101 mmol/L (98-107); Cholesterol 194 mg/dL (0-200); Estimated Glomerular Filt Rate > 60; Glucose 92 mg/dL (65-110); HDL Direct 66 mg/dL; Potassium 3.8 mmol/L (3.4-5.0); Sodium 137 mmol/L (137-145); Total Protein 7.6 g/dL (6.3-8.2); Triglycerides 101 mg/dL (<150)
[2024-08-13 17:56] LABS: LDL Cholesterol Direct 99 mg/dL
[2024-08-13 18:02] LABS: T4 Thyroxine 7.68 ug/dL (5.53-11.0)
[2024-08-13 18:03] LABS: Hemoglobin A1C 5.3 % (<5.7)
[2024-08-13 18:16] LABS: Thyroid Stimulating Hormone 0.079 uIU/mL (0.465-4.680); Total Triiodothyronine (T3) 1.12 NG/ML (0.82-1.58)
== END 2024-08-13 16:41 | disposition home or self-care (01) ==
LOC: ANHLAB 16:41
PROVIDERS: PCP Nurse Practitioner Family; Visit Provider Nurse Practitioner Family
DX: R73.01 Impaired fasting glucose (principal); R53.83 Other fatigue; E78.2 Mixed hyperlipidemia; Z00.00 Encounter for general adult medical examination without abnormal findings; Z83.49 Family history of other endocrine, nutritional and metabolic diseases
CPT/HCPCS: 36415; 80053; 80061; 83036; 84436; 84443; 84480; 85025

== ENCOUNTER 2024-10-20 06:56 | Outpatient (CLI) | payer OTHER, SELFPAY ==
--- OUTSIDE RECORDS SUMMARY | 2024-10-20 06:59 | XMS_ITS | Clinical Summary ---
Author Organization [facility] Address [address] [place] [address] Care Team Providers Care Insurance Claims Adjuster Name Role Phone Unavailable Primary Care Provider Unavailabl e Social History Tobacco Use Types Packs/Day Years Used Date Smoking Tobacco: Never Assessed Comments Unknown Sex and Gender Information Value Date Recorded Sex Assigned at Not on file Legal Sex Female 7:39 PM CDT Gender Identity Not on file Sexual Orientation Not on file Last Filed Vital Signs Vital Sign Reading Time Taken Comments Blood Pressure 120/70 10/15/2017 8:28 AM CDT Pulse 64 10/15/2017 8:28 AM CDT Temperature - - Respiratory Rate - - Oxygen Saturation - - Inhaled Oxygen Concentration - - Weight 90.7 kg (200 lb) 10/15/2017 8:28 AM CDT Height 162.6 cm (5' 4) 10/15/2017 8:28 AM CDT Body Mass Index 34.33 10/15/2017 8:28 AM CDT Plan of Treatment Health Maintenance Due Date Last Done Comments Cervical Cancer Screening Pap Smear (Age 30 to 64) Every 3 Years 1989 Annual Physical 1992 DTaP, Tdap and Td Vaccines (6 - Tdap) 06/30/2004 06/29/2004, 10/11/1995, 05/19/1991, Additional history exists Hepatitis C 10/21/2007 HPV Vaccines (1 - 3-dose SCDM series) 2016 Cervical Cancer Screening Pap with HPV Testing (Age 30 to 64) Every 5 Years 10/21/2019 08/20/2011, 03/16/2011 Cervical Cancer Screening with HPV 10/21/2019 COVID-19 Vaccine (2023-25 season) 2023 Hepatitis B Vaccines Completed 06/10/2000, 01/10/2000, 12/07/1999 Meningococcal Vaccine Aged Out 09/27/2008 No mt ryan eligible based on patient's age to complete this topic Meningococcal B Vaccine Aged Out No l onger eligible based on patient's age to complete this topic Pneumococcal Vaccine: Pediatrics (0 to 5 Years) and At-Risk Patients (6 to 49 Years) Aged Out No longer eligible based on patient's age to complete this topic RSV Immunizations Under 20 Months Aged Out No longer eligible based on patient's age to complete this topic Procedures Procedure Name Priority Date/Time Associated Diagnosis Comments HPV DNA PROBE THIN PREP Routine 08/20/2011 7:58 AM CDT from Last 3 Months or Most Recently Relevant to Health Maintenance Results * HPV DNA PROBE THIN PREP (08/20/2011 7:58 AM CDT) HPV INTERMEDIATE/HIGH RISK SEE NOTE [facility] TO EPIC CONVERSION Comment: NOT DETECTED Reference range: NOT DETECTED Tested for High-Risk types 16,18,31,33,35,39,45,51, 52,56,58,59,68. The analytical performance characteristics of this assay, when used to test SurePath(R) or Vaginal specimens, have been determined by [employer]. Methodology: Hybrid Capture with Signal Amplification. Test Performed by [facility], [facility], [address] [place] [address] Ilan Herndon M.D., Ph.D., Director of Laboratories , CLIA [id number] 08/20/2011 7:58 AM CDT 08/20/2011 7:58 AM CDT Narrative [facility] TO EPIC CONVERSION - 08/20/2011 7:58 AM CDT [AUTO]: This test was reviewed. us Generic Conversion Md [facility] Final Result [facility] TO EPIC CONVERSION from Last 3 Months or Most Recently Relevant to Health Maintenance
== END 2024-10-20 06:57 | disposition home or self-care (01) ==
PROVIDERS: PCP Nurse Practitioner Family; Visit Provider Nurse Practitioner Family
DX: R53.83 Other fatigue (principal); Z83.49 Family history of other endocrine, nutritional and metabolic diseases
CPT/HCPCS: 86376

== ENCOUNTER 2024-12-30 13:46 | Outpatient (CLI) | payer OTHER, SELFPAY ==
--- NOTE | ~2024-12-30 | MM_ITS ---
EXAMINATION: MM scrn debbie implant BI w ro HISTORY: Screening mammogram TECHNIQUE: Craniocaudal and mediolateral oblique 3-D tomosynthesis images with implant displacement and synthetic 2-D images were generated. Craniocaudal and mediolateral oblique views of the breasts without implant displacement were obtained using full field digital mammography. CAD analysis was submitted and interpreted. COMPARISON: 08/08/2018 BREAST PARENCHYMAL COMPOSITION: Not Dense: The breasts are almost entirely fatty. FINDINGS: There is no evidence of suspicious mass, calcification, or architectural distortion to suggest malignancy in either breast. There has been no suspicious interval change. IMPRESSION: 1. No mammographic evidence of malignancy. 2. Recommend routine screening mammography in one year. BI-RADS Category 1: Negative Reviewed, dictated and finalized at location B.
--- OUTSIDE RECORDS SUMMARY | 2024-12-30 15:23 | XMS_ITS | Clinical Summary ---
Author Organization [facility] Address [address] [place] [phone] Care Team Providers Care Almond Blancher Operator Name Role Phone Rashi Cadet MD Primary [...] Not on file Insurance CORE Care Teams Almond Blancher Operator Relationship Specialty Start Date End Date Rashi Cadet MD [address] [place] [address] PCP - General Family Medicine 05/23/20
--- OUTSIDE RECORDS SUMMARY | 2024-12-30 15:23 | XMS_ITS | Clinical Summary ---
Author Organization [facility] Address [address] [place] [id number] Care Team Providers Care Tugboat Dispatcher Name Role Phone Unavailable Primary Care Provider [...] Cancer Screening with HPV 10/21/2019 COVID-19 Vaccine (2024- season) 2024 Influenza Adult (#1) 2024 Hepatitis B Vaccines Completed 06/10/2000, 01/10/2000, 12/07/1999 Meningococcal Vaccine Aged Out 09/27/2008 No mt ryan eligible based on patient's age to complete this topic Hepatitis A Vaccines Aged Out No long er eligible based on patient's age to complete [...] or Vaginal specimens, have been determined by [email or web address]. Methodology: Hybrid Capture with Signal Amplification. Test Performed by [facility], [email or web address] [facility], [address] [place] [id number] Ilan Herndon M.D., Ph.D., Director of Laboratories , [place] [id number] 08/20/2011 7:58 AM CDT 08/20/2011 7:58 AM CDT Narrative [facility] TO EPIC CONVERSION - 08/20/2011 7:58 AM CDT [AUTO]: This test was reviewed. us Generic Conversion Md [facility]/CYTOLOGY [facility] Final Result [facility] TO EPIC CONVERSION from Last 3 Months or Most Recently Relevant to Health Maintenance
== END 2024-12-30 13:47 | disposition home or self-care (01) ==
PROVIDERS: PCP Nurse Practitioner Family; Visit Provider Obstetrics & Gynecology
DX: Z12.31 Encounter for screening mammogram for malignant neoplasm of breast (principal)
CPT/HCPCS: 77063; 77067